=== PATIENT | male | born 1960 | race Caucasian/White ===

== ENCOUNTER → 2019-07-02 | Outpatient (CLI) | payer OTHER, MEDICAID | LOC: M.WC 08:23 | DX: E11.622 Type 2 diabetes mellitus with other skin ulcer (principal); L89.312 Pressure ulcer of right buttock, stage 2; L98.412 Non-pressure chronic ulcer of buttock with fat layer exposed; L02.212 Cutaneous abscess of back [any part, except buttock and flank]; L02.211 Cutaneous abscess of abdominal wall; E66.01 Morbid (severe) obesity due to excess calories; E78.5 Hyperlipidemia, unspecified; G47.30 Sleep apnea, unspecified; I10 Essential (primary) hypertension; F41.9 Anxiety disorder, unspecified; F31.32 Bipolar disorder, current episode depressed, moderate; F17.200 Nicotine dependence, unspecified, uncomplicated; F41.0 Panic disorder [episodic paroxysmal anxiety]; Z68.42 Body mass index [BMI] 45.0-49.9, adult; Z79.82 Long term (current) use of aspirin; Z79.4 Long term (current) use of insulin ==

== ENCOUNTER → 2019-07-09 | Outpatient (CLI) | payer OTHER, MEDICAID | LOC: M.WC 04:39 | DX: E11.622 Type 2 diabetes mellitus with other skin ulcer (principal); L89.312 Pressure ulcer of right buttock, stage 2; L98.412 Non-pressure chronic ulcer of buttock with fat layer exposed; L02.212 Cutaneous abscess of back [any part, except buttock and flank]; L02.211 Cutaneous abscess of abdominal wall; E66.01 Morbid (severe) obesity due to excess calories; E78.5 Hyperlipidemia, unspecified; G47.30 Sleep apnea, unspecified; F31.32 Bipolar disorder, current episode depressed, moderate; F41.9 Anxiety disorder, unspecified; F17.200 Nicotine dependence, unspecified, uncomplicated; Z68.42 Body mass index [BMI] 45.0-49.9, adult ==

== ENCOUNTER → 2019-07-16 | Outpatient (CLI) | payer OTHER, MEDICAID | LOC: M.WC 04:57 | DX: E11.622 Type 2 diabetes mellitus with other skin ulcer (principal); L89.312 Pressure ulcer of right buttock, stage 2; L98.411 Non-pressure chronic ulcer of buttock limited to breakdown of skin; L02.212 Cutaneous abscess of back [any part, except buttock and flank]; L02.211 Cutaneous abscess of abdominal wall; L02.31 Cutaneous abscess of buttock; E66.01 Morbid (severe) obesity due to excess calories; E78.5 Hyperlipidemia, unspecified; I10 Essential (primary) hypertension; G47.30 Sleep apnea, unspecified; F41.9 Anxiety disorder, unspecified; F31.32 Bipolar disorder, current episode depressed, moderate; F17.200 Nicotine dependence, unspecified, uncomplicated; Z68.42 Body mass index [BMI] 45.0-49.9, adult; Z86.73 Personal history of transient ischemic attack (TIA), and cerebral infarction without residual deficits ==

== ENCOUNTER → 2019-07-23 | Outpatient (CLI) | payer OTHER, MEDICAID | LOC: M.WC 05:13 | DX: E11.622 Type 2 diabetes mellitus with other skin ulcer (principal); L89.312 Pressure ulcer of right buttock, stage 2; L98.411 Non-pressure chronic ulcer of buttock limited to breakdown of skin; L02.212 Cutaneous abscess of back [any part, except buttock and flank]; L02.211 Cutaneous abscess of abdominal wall; E66.01 Morbid (severe) obesity due to excess calories; E78.5 Hyperlipidemia, unspecified; G47.30 Sleep apnea, unspecified; I10 Essential (primary) hypertension; K64.5 Perianal venous thrombosis; F41.9 Anxiety disorder, unspecified; F31.32 Bipolar disorder, current episode depressed, moderate; F17.200 Nicotine dependence, unspecified, uncomplicated; Z68.42 Body mass index [BMI] 45.0-49.9, adult; Z86.73 Personal history of transient ischemic attack (TIA), and cerebral infarction without residual deficits ==

== ENCOUNTER → 2019-08-30 | Outpatient (CLI) | payer OTHER, MEDICAID | LOC: M.LAB 04:50 | DX: E87.6 Hypokalemia (principal) ==

== ENCOUNTER → 2020-02-07 | Outpatient (CLI) | payer OTHER, MEDICAID | LOC: M.WC 03:29 | PROVIDERS: ATTEND Surgery | DX: L02.212 Cutaneous abscess of back [any part, except buttock and flank] (principal); L02.31 Cutaneous abscess of buttock; L73.2 Hidradenitis suppurativa; E11.9 Type 2 diabetes mellitus without complications; E66.01 Morbid (severe) obesity due to excess calories; E78.5 Hyperlipidemia, unspecified; G47.30 Sleep apnea, unspecified; I10 Essential (primary) hypertension; J44.9 Chronic obstructive pulmonary disease, unspecified; F41.0 Panic disorder [episodic paroxysmal anxiety]; F31.9 Bipolar disorder, unspecified; F41.9 Anxiety disorder, unspecified; F17.200 Nicotine dependence, unspecified, uncomplicated; Z86.73 Personal history of transient ischemic attack (TIA), and cerebral infarction without residual deficits; Z68.42 Body mass index [BMI] 45.0-49.9, adult; Z79.82 Long term (current) use of aspirin; Z79.4 Long term (current) use of insulin ==

== ENCOUNTER → 2020-02-14 | Outpatient (CLI) | payer OTHER, MEDICAID | LOC: M.WC 02:33 | PROVIDERS: ATTEND Surgery | DX: L02.212 Cutaneous abscess of back [any part, except buttock and flank] (principal); L02.31 Cutaneous abscess of buttock; L73.2 Hidradenitis suppurativa; E66.01 Morbid (severe) obesity due to excess calories; E78.5 Hyperlipidemia, unspecified; G47.30 Sleep apnea, unspecified; I10 Essential (primary) hypertension; J44.9 Chronic obstructive pulmonary disease, unspecified; F31.9 Bipolar disorder, unspecified; F41.9 Anxiety disorder, unspecified; F17.200 Nicotine dependence, unspecified, uncomplicated; F41.0 Panic disorder [episodic paroxysmal anxiety]; Z86.73 Personal history of transient ischemic attack (TIA), and cerebral infarction without residual deficits; Z68.42 Body mass index [BMI] 45.0-49.9, adult ==

== ENCOUNTER → 2020-02-21 | Outpatient (CLI) | payer OTHER, MEDICAID | LOC: M.WC 04:21 | PROVIDERS: ATTEND Surgery | DX: L02.31 Cutaneous abscess of buttock (principal); L02.212 Cutaneous abscess of back [any part, except buttock and flank]; L73.2 Hidradenitis suppurativa; E11.9 Type 2 diabetes mellitus without complications; E78.5 Hyperlipidemia, unspecified; I10 Essential (primary) hypertension; J44.9 Chronic obstructive pulmonary disease, unspecified; G47.30 Sleep apnea, unspecified; E66.01 Morbid (severe) obesity due to excess calories; F31.9 Bipolar disorder, unspecified; F41.9 Anxiety disorder, unspecified; F17.200 Nicotine dependence, unspecified, uncomplicated; Z86.73 Personal history of transient ischemic attack (TIA), and cerebral infarction without residual deficits; Z68.42 Body mass index [BMI] 45.0-49.9, adult; Z79.82 Long term (current) use of aspirin; Z79.4 Long term (current) use of insulin ==

== ENCOUNTER → 2020-02-28 | Outpatient (CLI) | payer OTHER, MEDICAID | LOC: M.WC 06:23 | PROVIDERS: ATTEND Surgery | DX: L02.212 Cutaneous abscess of back [any part, except buttock and flank] (principal); L02.31 Cutaneous abscess of buttock; L02.214 Cutaneous abscess of groin; L73.2 Hidradenitis suppurativa; E66.01 Morbid (severe) obesity due to excess calories; E78.5 Hyperlipidemia, unspecified; G47.30 Sleep apnea, unspecified; I10 Essential (primary) hypertension; J44.9 Chronic obstructive pulmonary disease, unspecified; F31.9 Bipolar disorder, unspecified; F41.9 Anxiety disorder, unspecified; F17.200 Nicotine dependence, unspecified, uncomplicated; F41.0 Panic disorder [episodic paroxysmal anxiety]; Z86.73 Personal history of transient ischemic attack (TIA), and cerebral infarction without residual deficits; Z68.42 Body mass index [BMI] 45.0-49.9, adult ==

== ENCOUNTER → 2020-03-06 | Outpatient (CLI) | payer OTHER, MEDICAID | LOC: M.WC 04:22 | PROVIDERS: ATTEND Surgery | DX: L02.214 Cutaneous abscess of groin (principal); L02.212 Cutaneous abscess of back [any part, except buttock and flank]; L02.31 Cutaneous abscess of buttock; L73.2 Hidradenitis suppurativa; E66.01 Morbid (severe) obesity due to excess calories; E78.5 Hyperlipidemia, unspecified; G47.30 Sleep apnea, unspecified; I10 Essential (primary) hypertension; J44.9 Chronic obstructive pulmonary disease, unspecified; F31.9 Bipolar disorder, unspecified; F41.9 Anxiety disorder, unspecified; F17.200 Nicotine dependence, unspecified, uncomplicated; F41.0 Panic disorder [episodic paroxysmal anxiety]; Z86.73 Personal history of transient ischemic attack (TIA), and cerebral infarction without residual deficits; Z68.42 Body mass index [BMI] 45.0-49.9, adult ==

== ENCOUNTER → 2020-03-13 | Outpatient (CLI) | payer OTHER, MEDICAID | LOC: M.WC 03:04 | PROVIDERS: ATTEND Surgery | DX: L02.214 Cutaneous abscess of groin (principal); L02.212 Cutaneous abscess of back [any part, except buttock and flank]; L02.31 Cutaneous abscess of buttock; L73.2 Hidradenitis suppurativa; E11.9 Type 2 diabetes mellitus without complications; E66.01 Morbid (severe) obesity due to excess calories; E78.5 Hyperlipidemia, unspecified; G47.30 Sleep apnea, unspecified; I10 Essential (primary) hypertension; J44.9 Chronic obstructive pulmonary disease, unspecified; F31.9 Bipolar disorder, unspecified; F41.9 Anxiety disorder, unspecified; F17.200 Nicotine dependence, unspecified, uncomplicated; F41.0 Panic disorder [episodic paroxysmal anxiety]; Z86.73 Personal history of transient ischemic attack (TIA), and cerebral infarction without residual deficits; Z68.42 Body mass index [BMI] 45.0-49.9, adult ==

== ENCOUNTER → 2020-03-20 | Outpatient (CLI) | payer OTHER, MEDICAID ==
[~2020-03-20] MED LIST: ACETAZOLAMIDE250 M2 PO; ASPIRIN325 PO; FLOMAX0.4 MG PO; GLIPIZIDE 10 MG10 MG PO; HUMULIN; HYDROCODON-ACE1 EAC7 PO; HYDROXYZINE HCL25 M2 PO; LAMOTRIGINE150 MG PO; LISINOPRIL20 MG PO; LOVASTATIN 20 M20 MG PO; PROZAC20 M1 PO; QUETIAPINE FUM200 M1 PO; SUPER THERAVIT1 EACH PO; TOPROL XL50 MG PO; TRIAMCINOLONE 080 G3 TOP; XANAX1 MG PO; ZYRTEC10 M5 PO
== END ==
LOC: M.WC 02:50
PROVIDERS: ATTEND Surgery
DX: L02.214 Cutaneous abscess of groin (principal); L02.212 Cutaneous abscess of back [any part, except buttock and flank]; L02.31 Cutaneous abscess of buttock; L73.2 Hidradenitis suppurativa; E66.01 Morbid (severe) obesity due to excess calories; E78.5 Hyperlipidemia, unspecified; G47.30 Sleep apnea, unspecified; I10 Essential (primary) hypertension; J44.9 Chronic obstructive pulmonary disease, unspecified; F31.9 Bipolar disorder, unspecified; F17.200 Nicotine dependence, unspecified, uncomplicated; F41.9 Anxiety disorder, unspecified; F41.0 Panic disorder [episodic paroxysmal anxiety]; Z86.73 Personal history of transient ischemic attack (TIA), and cerebral infarction without residual deficits; Z68.42 Body mass index [BMI] 45.0-49.9, adult

== ENCOUNTER → 2020-03-27 | Outpatient (CLI) | payer OTHER, MEDICAID | LOC: M.WC 05:22 | PROVIDERS: ATTEND Surgery | DX: L02.214 Cutaneous abscess of groin (principal); L02.212 Cutaneous abscess of back [any part, except buttock and flank]; L02.31 Cutaneous abscess of buttock; L73.2 Hidradenitis suppurativa; E11.9 Type 2 diabetes mellitus without complications; E66.01 Morbid (severe) obesity due to excess calories; E78.5 Hyperlipidemia, unspecified; I10 Essential (primary) hypertension; G47.30 Sleep apnea, unspecified; J44.9 Chronic obstructive pulmonary disease, unspecified; F31.9 Bipolar disorder, unspecified; F41.9 Anxiety disorder, unspecified; F17.200 Nicotine dependence, unspecified, uncomplicated; Z86.73 Personal history of transient ischemic attack (TIA), and cerebral infarction without residual deficits; Z68.42 Body mass index [BMI] 45.0-49.9, adult ==

== ENCOUNTER → 2020-04-24 | Outpatient (CLI) | payer OTHER, MEDICAID | LOC: M.WC 07:19 | PROVIDERS: ATTEND Surgery | DX: L02.214 Cutaneous abscess of groin (principal); L73.2 Hidradenitis suppurativa; E11.9 Type 2 diabetes mellitus without complications; E66.01 Morbid (severe) obesity due to excess calories; E78.5 Hyperlipidemia, unspecified; G47.30 Sleep apnea, unspecified; I10 Essential (primary) hypertension; J44.9 Chronic obstructive pulmonary disease, unspecified; F31.9 Bipolar disorder, unspecified; F41.9 Anxiety disorder, unspecified; F17.200 Nicotine dependence, unspecified, uncomplicated; Z68.42 Body mass index [BMI] 45.0-49.9, adult; Z86.73 Personal history of transient ischemic attack (TIA), and cerebral infarction without residual deficits ==

== ENCOUNTER → 2020-05-01 | Outpatient (CLI) | payer OTHER, MEDICAID | LOC: M.WC 03:16 | PROVIDERS: ATTEND Surgery | DX: L02.214 Cutaneous abscess of groin (principal); L73.2 Hidradenitis suppurativa; E66.01 Morbid (severe) obesity due to excess calories; E78.5 Hyperlipidemia, unspecified; G47.30 Sleep apnea, unspecified; I10 Essential (primary) hypertension; J44.9 Chronic obstructive pulmonary disease, unspecified; F31.9 Bipolar disorder, unspecified; F41.9 Anxiety disorder, unspecified; F17.200 Nicotine dependence, unspecified, uncomplicated; Z86.73 Personal history of transient ischemic attack (TIA), and cerebral infarction without residual deficits; Z68.42 Body mass index [BMI] 45.0-49.9, adult ==

== ENCOUNTER → 2020-05-15 | Outpatient (CLI) | payer OTHER, MEDICAID | LOC: M.WC 04:05 | PROVIDERS: ATTEND Surgery | DX: L02.214 Cutaneous abscess of groin (principal); L73.2 Hidradenitis suppurativa; E66.01 Morbid (severe) obesity due to excess calories; E78.5 Hyperlipidemia, unspecified; G47.30 Sleep apnea, unspecified; I10 Essential (primary) hypertension; J44.9 Chronic obstructive pulmonary disease, unspecified; F31.9 Bipolar disorder, unspecified; F41.9 Anxiety disorder, unspecified; F17.200 Nicotine dependence, unspecified, uncomplicated; Z86.73 Personal history of transient ischemic attack (TIA), and cerebral infarction without residual deficits ==

== ENCOUNTER → 2020-05-22 | Outpatient (CLI) | payer OTHER, MEDICAID | LOC: M.WC 07:06 | PROVIDERS: ATTEND Surgery | DX: L02.214 Cutaneous abscess of groin (principal); L73.2 Hidradenitis suppurativa; E78.5 Hyperlipidemia, unspecified; I10 Essential (primary) hypertension; J44.9 Chronic obstructive pulmonary disease, unspecified; E66.01 Morbid (severe) obesity due to excess calories; G47.30 Sleep apnea, unspecified; F31.9 Bipolar disorder, unspecified; F41.9 Anxiety disorder, unspecified; F17.200 Nicotine dependence, unspecified, uncomplicated; Z68.42 Body mass index [BMI] 45.0-49.9, adult; Z86.73 Personal history of transient ischemic attack (TIA), and cerebral infarction without residual deficits ==

== ENCOUNTER 2020-06-02 09:25 | Inpatient (IN) | payer OTHER, MEDICAID ==
[~2020-06-02] VITALS: Ht 170.2 cm; Wt 136.4 kg
[2020-06-02 09:34] VITALS: BP 146/94
[2020-06-02] MEDS ORDERED: ASPIRIN325 PO (09:39)
[2020-06-02] MEDS ORDERED: XANAX1 MG PO (09:39)
[2020-06-02] MEDS ORDERED: GLIPIZIDE 10 MG10 MG PO (09:40)
[2020-06-02] MEDS ORDERED: ZYRTEC10 M5 PO (09:40)
[2020-06-02] MEDS ORDERED: PROZAC20 M1 PO (09:40)
[2020-06-02] MEDS ORDERED: HYDROXYZINE HCL25 M2 PO (09:41)
[2020-06-02] MEDS ORDERED: HUMULIN (09:41)
[2020-06-02] MEDS ORDERED: LISINOPRIL20 MG PO (09:42)
[2020-06-02] MEDS ORDERED: LAMOTRIGINE150 MG PO (09:42)
[2020-06-02] MEDS ORDERED: FLOMAX0.4 MG PO (09:43)
[2020-06-02] MEDS ORDERED: TOPROL XL50 MG PO (09:43)
[2020-06-02] MEDS ORDERED: QUETIAPINE FUM200 M1 PO (09:43)
[2020-06-02] MEDS ORDERED: LOVASTATIN 20 M20 MG PO (09:43)
[2020-06-02] MEDS ORDERED: SUPER THERAVIT1 EACH PO (09:43)
[2020-06-02] MEDS ORDERED: TRIAMCINOLONE 080 G3 TOP (09:44)
[2020-06-02 10:26] LABS: HEMATOCRIT 39.4 % (42.0-52.0); HEMOGLOBIN 13.5 gm/dL (14.0-18.0); MCHC 34.4 g/dL (28.0-37.0); MCV 93.2 fL (80.0-100.0); MPV 6.9 fl. (7.2-11.1); NUCLEATED RBCS 0 /100WBC; PLATELET COUNT* 197 thou/uL (150-400); RBC 4.23 mil/uL (4.50-6.00); RDW-CV 13.5 % (10.5-14.5); WBC 8.8 thou/uL (4.0-11.0)
[2020-06-02 10:30] LABS: CALCIUM 9.3 mg/dL (8.5-10.1); POTASSIUM 4.6 mmol/L (3.5-5.1)
[2020-06-02 10:32] LABS: APTT 27.5 Seconds (25.0-31.3); PROTIME 10.8 Seconds (9.20-11.50)
[2020-06-02 10:41] LABS: ALBUMIN 3.9 g/dL (3.4-5.0); TOTAL BILIRUBIN 0.7 mg/dL (<0.1-1.0); TOTAL PROTEIN 7.3 g/dL (6.4-8.2)
[2020-06-02 10:51] LABS: URINE BILIRUBIN NEGATIVE (Negative); URINE BLOOD NEGATIVE (Negative); URINE CLARITY CLEAR; URINE COLOR YELLOW; URINE GLUCOSE-RANDOM NEGATIVE (Negative); URINE KETONES NEGATIVE (Negative); URINE LEUKOCYTES-REFLEX NEGATIVE (Negative); URINE NITRITE-REFLEX NEGATIVE (Negative); URINE PROTEIN NEGATIVE (Negative)
[2020-06-02 11:06] LABS: ABSOLUTE BASOPHILS 0.1 thou/uL (0.0-0.2); ABSOLUTE MONOCYTES 0.6 thou/uL (0.0-1.2); ABSOLUTE NEUTROPHILS 6.2 thou/uL (1.6-8.1); METAMYELOCYTES 1 %
[2020-06-02 11:07] LABS: PLATELET ESTIMATE ADEQUATE
--- NOTE | 2020-06-02 11:59 | NUR ---
SCHEDULED MRI AT 1300, DR WATERS NOTIFIED
--- NOTE | 2020-06-02 12:13 | NUR ---
MRI CHECKLIST COMPLETE
--- NOTE | 2020-06-02 12:15 | NUR ---
ORDERS RECEIVED FROM DR WATERS, SCHEDULED MRI AT 1300, LP PROCEDURE AWAITING RESULTS TO PROCEED, ADMISSION STATUS AND ER CHARGE NURSE NOTIFIED
--- NOTE | 2020-06-02 14:45 | NUR ---
DR WATERS CALLED RADIOLOGY IR FOR FURTHER INTERVENTIONS R/T LP
[2020-06-02 15:07] VITALS: BP 132/61
[2020-06-02 16:38] VITALS: BP 139/64
--- NOTE | 2020-06-02 16:58 | EKG ---
[place] [address] ELECTROCARDIOGRAM REPORT Name: SYDNEE MAY Room: [address] ADM IN M.R.#: [id number] Admission: 06/02/20 Attend Phys: Waldemar Canales Discharge: Date of : 64 Date of Service: 06/02/20 0934 Report #: [id number] THIS REPORT FOR: //name// [facility] ED Test Date: 2020-06-02 Test Time: 09:34:40 Pat Name: SYDNEE MAY Department: Room: [facility] Gender: M Campaign Developer: TDS : 1960 Requested By: Ran Huizar Order Number: [id number] MD: Sydnee Alvarado Measurements Intervals [place] Rate: 79 P: 47 WV: 195 QRS: 54 QRSD: 110 T: 55 QT: 372 QTc: 427 Interpretive Statements Sinus rhythm Low voltage, precordial leads No previous ECG available for comparison Electronically Signed On 06-02-2020 16:58:17 CDT by Sydnee Alvarado [email or web address] <ELECTRONICALLY SIGNED> By: Sydnee Alvarado MD, [facility] 06/02/20 1658 0934 0934 Sydnee Alvarado MD, [facility] /EPI
--- NOTE | 2020-06-02 17:03 | NUR ---
PT ADMITTED WITH HYPONATREMIA AND PSEUDOTUMOR. PT RETURNED FROM LUMBAR PUNCTURE. PT ALERT AND ORIENTED. PT RESTING FLAT IN BED. PT ORIENTED TO ROOM. FALL RISK PRECAUTIONS IN PLACE. BLOOD SUGAR MONITORED. HEART MONITORED. WILL CONTINUE TO MONTIOR.
--- NOTE | 2020-06-02 17:13 | NUR ---
PT REMAINED ALERT AND ORIENTED. PT LAYING FLAT PER PROTOCOL FOR 3 HOURS. BLOOD SUGAR CHECKED. HERAT MONITORED. FALL RISK PRECAUTIONS IN PLACE. HOURLY ROUNDING COMPLETED. WILL CONTINUE TO MONITOR.
[2020-06-02 17:20] LABS: CSF GLUCOSE 74 mg/dl (40-70); CSF PROTEIN 60.3 mg/dl (15-45)
[2020-06-02 18:26] LABS: CSF CLARITY CLEAR; CSF COLOR COLORLESS; CSF RBC 0 /mm3; VOLUME 28 ml
[2020-06-02 18:27] LABS: CSF WBC 1 /mm3 (0-10)
[2020-06-02 20:00] VITALS: BP 151/65
[2020-06-03] VITALS: BP 149/70
[2020-06-03 04:27] VITALS: BP 129/59
[2020-06-03 04:40] LABS: HEMOGLOBIN 13.4 gm/dL (14.0-18.0); MCH 32.6 pg (26.0-34.0); MCHC 35.2 g/dL (28.0-37.0); MCV 92.7 fL (80.0-100.0); MPV 6.8 fl. (7.2-11.1); RBC 4.1 mil/uL (4.50-6.00); RDW-CV 13.2 % (10.5-14.5); WBC 9.5 thou/uL (4.0-11.0)
[2020-06-03 04:58] LABS: ALBUMIN 3.7 g/dL (3.4-5.0); CALCIUM 8.8 mg/dL (8.5-10.1); CREATININE 1.1 mg/dL (0.6-1.3); MAGNESIUM 1.7 mg/dL (1.8-2.4); POTASSIUM 3.9 mmol/L (3.5-5.1); TOTAL BILIRUBIN 0.8 mg/dL (<0.1-1.0); TOTAL PROTEIN 6.8 g/dL (6.4-8.2)
--- NOTE | 2020-06-03 05:53 | NUR ---
ASSESSMENT COMPLETED AT BEDSIDE, PLEASE REFER TO CHARTING FOR DETAILS. MEDICATIONS ADMINISTERED PER MAR. NO REPORTS OF PAIN OR DISCOMFORT NOTED. HOURL ROUNDING IN PLACE FOR PT SAFETY. CURRENTLY ASLEEP IN BED WITH CALL LIGHT WITHIN REACH.
[2020-06-03 08:00] VITALS: BP 129/64
[2020-06-03 12:00] VITALS: BP 125/63
--- NOTE | 2020-06-03 16:40 | NUR ---
PT HAS RESTED T/O DAY WITHOUT COMPLAINT. PT REPORTED A SLIGHT HEADACHE UPON ASSESSMENT BUT HAS SINCE RESOLVED.VSS ON RA. SR ON MONITOR. HAVE NOTED THAT PT DOES HAVE MOMENTS OF ANXIETY WHEN DOOR IS OPEN. SIGN MADE TO KEEP PTS DOOR CLOSED. NOTHING FURTHER AT THIS TIME.CLWR.WCTM
[2020-06-03 17:59] VITALS: BP 143/61
[2020-06-03 20:00] VITALS: BP 132/61
[2020-06-04] VITALS: BP 132/64
[2020-06-04 03:06] LABS: IgA 243 mg/dL (90-386); IgG 803 mg/dL (603-1613); IgM 56 mg/dL (20-172)
[2020-06-04 04:00] VITALS: BP 118/58
[2020-06-04 04:42] LABS: HEMATOCRIT 39.1 % (42.0-52.0); HEMOGLOBIN 13.6 gm/dL (14.0-18.0); MCHC 34.8 g/dL (28.0-37.0); MCV 91.9 fL (80.0-100.0); MPV 6.7 fl. (7.2-11.1); RBC 4.25 mil/uL (4.50-6.00); RDW-CV 13.4 % (10.5-14.5); WBC 9.1 thou/uL (4.0-11.0)
[2020-06-04 05:00] LABS: ALBUMIN 3.6 g/dL (3.4-5.0); CALCIUM 8.9 mg/dL (8.5-10.1); POTASSIUM 3.9 mmol/L (3.5-5.1); TOTAL BILIRUBIN 0.8 mg/dL (<0.1-1.0); TOTAL PROTEIN 6.8 g/dL (6.4-8.2)
[2020-06-04 05:39] LABS: LDL (DIRECT) CHOL 79 mg/dL (0-99)
--- NOTE | 2020-06-04 06:55 | NUR ---
ASSUMED PT CARE AT APPROX 1930. PT IS AWAKE AND ORIENTED X4. MANAGER SUPPLY CHAIN PLANNING IS TRACING SR. PT DENIES PAIN/DISCOMFORT. PT IS NOT IN RESPIRATORY DISTRESS, NO DESATURATIONS NOTED ON ROOM AIR.PT IS ABLE TO REST THROUGHOUT THIS SHIFT. CALL LIGHT WITHIN REACH. HOURLY ROUNDING DONE FOR PT SAFETY.
[2020-06-04 08:00] VITALS: BP 104/54
[2020-06-04 11:48] VITALS: BP 116/49
[2020-06-04] MEDS ORDERED: ACETAZOLAMIDE250 M2 PO (14:15)
[2020-06-04 14:59] VITALS: BP 116/49
--- NOTE | 2020-06-04 15:39 | NUR ---
PT HAS RESTED T/O DAY WITHOUT COMPLAINTS. BP DECREASED UPON ASSESSMENT. HELD BP MEDICATION AND EDUCATED ON ABILITY TO TAKE LATER IF BP ELEVATED. OTHERWISE VSS. SR ON MONITOR. NEURO SIGNED OFF. PT MADE AWARE TO FOLLOW WITH OPTHAMOLOGY. NOTHING FURTHER.CLWR.WCTM
--- NOTE | 2020-06-04 15:42 | NUR ---
PT DCD TO HOME IN STABLE CONDITION. DC INSTRUCTIONS,MEDICATIONS,PRESCRIPTIONS, FOLLOW UP,ACTIVITY,DIET AND TREATMENTS REVIEWED WITH PT AND PT REPORTS UNDERSTANDING WITHOUT FURTHER QUESTIONS. PT TAKEN TO FAMILY VEHICLE ACCOMPANIED BY STAFF WITH ALL OF BELONGINGS.
== END 2020-06-04 15:58 | disposition home or self-care (01) | DRG 103 ==
LOC: M.ERS 09:25 → M.2W 12:04 → M.TBA-ER 12:04 → M.2W 15:21
PROVIDERS: Emergency Medicine Emergency Medical Services; Psychiatry & Neurology Neurology; ADMIT Family Medicine; ATTEND Family Medicine
PROC: B01B1ZZ Fluoroscopy of Spinal Cord using Low Osmolar Contrast (ICD-10-PCS; principal; 2020-06-02)
PROC: 009U3ZX Drainage of Spinal Canal, Percutaneous Approach, Diagnostic (ICD-10-PCS; principal; 2020-06-02)
DX: G93.2 Benign intracranial hypertension (principal); E22.2 Syndrome of inappropriate secretion of antidiuretic hormone; Z68.41 Body mass index [BMI] 40.0-44.9, adult; E78.5 Hyperlipidemia, unspecified; F32.9 Major depressive disorder, single episode, unspecified; F41.9 Anxiety disorder, unspecified; F17.210 Nicotine dependence, cigarettes, uncomplicated; F40.00 Agoraphobia, unspecified; E66.01 Morbid (severe) obesity due to excess calories; I10 Essential (primary) hypertension; E11.51 Type 2 diabetes mellitus with diabetic peripheral angiopathy without gangrene; Z20.828 Contact with and (suspected) exposure to other viral communicable diseases; Z79.84 Long term (current) use of oral hypoglycemic drugs; Z79.82 Long term (current) use of aspirin; Z79.899 Other long term (current) drug therapy; Z86.73 Personal history of transient ischemic attack (TIA), and cerebral infarction without residual deficits; Z23 Encounter for immunization

== ENCOUNTER → 2020-06-05 | Outpatient (CLI) | payer OTHER, MEDICAID ==
[~2020-06-05] MED LIST changes: -HYDROCODON-ACE1 EAC7 PO
== END ==
LOC: M.WC 03:37
PROVIDERS: ATTEND Surgery
DX: L02.214 Cutaneous abscess of groin (principal); L73.2 Hidradenitis suppurativa; E66.01 Morbid (severe) obesity due to excess calories; E78.5 Hyperlipidemia, unspecified; G47.30 Sleep apnea, unspecified; I10 Essential (primary) hypertension; J44.9 Chronic obstructive pulmonary disease, unspecified; F41.0 Panic disorder [episodic paroxysmal anxiety]; F17.200 Nicotine dependence, unspecified, uncomplicated; F31.9 Bipolar disorder, unspecified; F41.9 Anxiety disorder, unspecified; Z86.73 Personal history of transient ischemic attack (TIA), and cerebral infarction without residual deficits; Z68.42 Body mass index [BMI] 45.0-49.9, adult

== ENCOUNTER → 2020-06-12 | Outpatient (CLI) | payer OTHER, MEDICAID | LOC: M.WC 03:38 | PROVIDERS: ATTEND Surgery | DX: L02.214 Cutaneous abscess of groin (principal); L73.2 Hidradenitis suppurativa; E66.01 Morbid (severe) obesity due to excess calories; E78.5 Hyperlipidemia, unspecified; G47.30 Sleep apnea, unspecified; I10 Essential (primary) hypertension; J44.9 Chronic obstructive pulmonary disease, unspecified; F31.9 Bipolar disorder, unspecified; F41.9 Anxiety disorder, unspecified; F41.0 Panic disorder [episodic paroxysmal anxiety]; F17.200 Nicotine dependence, unspecified, uncomplicated; Z86.73 Personal history of transient ischemic attack (TIA), and cerebral infarction without residual deficits; Z68.42 Body mass index [BMI] 45.0-49.9, adult ==

== ENCOUNTER → 2020-06-19 | Outpatient (CLI) | payer OTHER, MEDICAID | LOC: M.WC 07:29 | PROVIDERS: ATTEND Surgery | DX: L02.214 Cutaneous abscess of groin (principal); L73.2 Hidradenitis suppurativa; E66.01 Morbid (severe) obesity due to excess calories; E78.5 Hyperlipidemia, unspecified; G47.30 Sleep apnea, unspecified; I10 Essential (primary) hypertension; J44.9 Chronic obstructive pulmonary disease, unspecified; F31.9 Bipolar disorder, unspecified; F41.0 Panic disorder [episodic paroxysmal anxiety]; F41.9 Anxiety disorder, unspecified; F17.200 Nicotine dependence, unspecified, uncomplicated; Z86.73 Personal history of transient ischemic attack (TIA), and cerebral infarction without residual deficits; Z68.42 Body mass index [BMI] 45.0-49.9, adult ==

== ENCOUNTER → 2020-06-26 | Outpatient (CLI) | payer OTHER, MEDICAID | LOC: M.WC 05:34 | PROVIDERS: ATTEND Surgery | DX: L73.2 Hidradenitis suppurativa (principal); L02.214 Cutaneous abscess of groin; E66.01 Morbid (severe) obesity due to excess calories; E78.5 Hyperlipidemia, unspecified; G47.30 Sleep apnea, unspecified; I10 Essential (primary) hypertension; J44.9 Chronic obstructive pulmonary disease, unspecified; F31.9 Bipolar disorder, unspecified; F41.9 Anxiety disorder, unspecified; F17.200 Nicotine dependence, unspecified, uncomplicated; F41.0 Panic disorder [episodic paroxysmal anxiety]; Z86.73 Personal history of transient ischemic attack (TIA), and cerebral infarction without residual deficits; Z68.42 Body mass index [BMI] 45.0-49.9, adult ==

== ENCOUNTER → 2020-07-20 | Outpatient (CLI) | payer OTHER, MEDICAID | LOC: M.WC 08:00 | PROVIDERS: ATTEND Family Medicine | DX: L73.2 Hidradenitis suppurativa (principal); L02.31 Cutaneous abscess of buttock; E78.5 Hyperlipidemia, unspecified; I10 Essential (primary) hypertension; J44.9 Chronic obstructive pulmonary disease, unspecified; G47.30 Sleep apnea, unspecified; E66.01 Morbid (severe) obesity due to excess calories; F31.9 Bipolar disorder, unspecified; F41.9 Anxiety disorder, unspecified; F17.290 Nicotine dependence, other tobacco product, uncomplicated; Z86.73 Personal history of transient ischemic attack (TIA), and cerebral infarction without residual deficits; Z68.42 Body mass index [BMI] 45.0-49.9, adult; Z79.82 Long term (current) use of aspirin; Z79.84 Long term (current) use of oral hypoglycemic drugs ==

== ENCOUNTER → 2020-07-24 | Outpatient (CLI) | payer OTHER, MEDICAID | LOC: M.WC 08:06 | PROVIDERS: ATTEND Surgery | DX: L73.2 Hidradenitis suppurativa (principal); L02.31 Cutaneous abscess of buttock; E78.5 Hyperlipidemia, unspecified; I10 Essential (primary) hypertension; J44.9 Chronic obstructive pulmonary disease, unspecified; E11.9 Type 2 diabetes mellitus without complications; G47.30 Sleep apnea, unspecified; E66.01 Morbid (severe) obesity due to excess calories; F31.9 Bipolar disorder, unspecified; F41.9 Anxiety disorder, unspecified; F17.290 Nicotine dependence, other tobacco product, uncomplicated; Z68.42 Body mass index [BMI] 45.0-49.9, adult; Z86.73 Personal history of transient ischemic attack (TIA), and cerebral infarction without residual deficits; Z79.82 Long term (current) use of aspirin; Z79.4 Long term (current) use of insulin ==

== ENCOUNTER → 2020-07-31 | Outpatient (CLI) | payer OTHER, MEDICAID | LOC: M.WC 08:04 | PROVIDERS: ATTEND Surgery | DX: L73.2 Hidradenitis suppurativa (principal); L02.31 Cutaneous abscess of buttock; E11.9 Type 2 diabetes mellitus without complications; E78.5 Hyperlipidemia, unspecified; E66.01 Morbid (severe) obesity due to excess calories; I10 Essential (primary) hypertension; J44.9 Chronic obstructive pulmonary disease, unspecified; G47.30 Sleep apnea, unspecified; F31.9 Bipolar disorder, unspecified; F41.9 Anxiety disorder, unspecified; F17.290 Nicotine dependence, other tobacco product, uncomplicated; Z68.42 Body mass index [BMI] 45.0-49.9, adult; Z86.73 Personal history of transient ischemic attack (TIA), and cerebral infarction without residual deficits ==

== ENCOUNTER → 2020-08-07 | Outpatient (CLI) | payer OTHER, MEDICAID | LOC: M.WC 08:13 | PROVIDERS: ATTEND Surgery | DX: L02.31 Cutaneous abscess of buttock (principal); L73.2 Hidradenitis suppurativa; E11.9 Type 2 diabetes mellitus without complications; E78.5 Hyperlipidemia, unspecified; I10 Essential (primary) hypertension; J44.9 Chronic obstructive pulmonary disease, unspecified; E66.01 Morbid (severe) obesity due to excess calories; G47.30 Sleep apnea, unspecified; F31.9 Bipolar disorder, unspecified; F41.9 Anxiety disorder, unspecified; F17.290 Nicotine dependence, other tobacco product, uncomplicated; Z68.42 Body mass index [BMI] 45.0-49.9, adult; Z86.73 Personal history of transient ischemic attack (TIA), and cerebral infarction without residual deficits; Z79.4 Long term (current) use of insulin; Z79.82 Long term (current) use of aspirin ==

== ENCOUNTER → 2020-08-21 | Outpatient (CLI) | payer OTHER, MEDICAID | LOC: M.WC 08:30 | PROVIDERS: ATTEND Surgery | DX: L02.31 Cutaneous abscess of buttock (principal); E78.5 Hyperlipidemia, unspecified; I10 Essential (primary) hypertension; J44.9 Chronic obstructive pulmonary disease, unspecified; E11.9 Type 2 diabetes mellitus without complications; G47.30 Sleep apnea, unspecified; E66.01 Morbid (severe) obesity due to excess calories; F31.9 Bipolar disorder, unspecified; F41.9 Anxiety disorder, unspecified; F17.290 Nicotine dependence, other tobacco product, uncomplicated; Z68.42 Body mass index [BMI] 45.0-49.9, adult; Z86.73 Personal history of transient ischemic attack (TIA), and cerebral infarction without residual deficits; Z79.4 Long term (current) use of insulin; Z79.82 Long term (current) use of aspirin ==

== ENCOUNTER → 2020-08-28 | Outpatient (CLI) | payer OTHER, MEDICAID | LOC: M.WC 09:00 | PROVIDERS: ATTEND Surgery | DX: L02.214 Cutaneous abscess of groin (principal); L73.2 Hidradenitis suppurativa; E66.01 Morbid (severe) obesity due to excess calories; E78.5 Hyperlipidemia, unspecified; I10 Essential (primary) hypertension; E11.9 Type 2 diabetes mellitus without complications; J44.9 Chronic obstructive pulmonary disease, unspecified; G47.30 Sleep apnea, unspecified; F31.9 Bipolar disorder, unspecified; F41.9 Anxiety disorder, unspecified; F17.290 Nicotine dependence, other tobacco product, uncomplicated; Z86.73 Personal history of transient ischemic attack (TIA), and cerebral infarction without residual deficits; Z68.42 Body mass index [BMI] 45.0-49.9, adult; Z79.4 Long term (current) use of insulin; Z79.82 Long term (current) use of aspirin ==

== ENCOUNTER → 2020-09-04 | Outpatient (CLI) | payer OTHER, MEDICAID | LOC: M.WC 08:53 | PROVIDERS: ATTEND Surgery | DX: L02.214 Cutaneous abscess of groin (principal); L73.2 Hidradenitis suppurativa; E11.9 Type 2 diabetes mellitus without complications; E78.5 Hyperlipidemia, unspecified; E66.01 Morbid (severe) obesity due to excess calories; G47.30 Sleep apnea, unspecified; I10 Essential (primary) hypertension; J44.9 Chronic obstructive pulmonary disease, unspecified; F17.200 Nicotine dependence, unspecified, uncomplicated; F41.9 Anxiety disorder, unspecified; F31.9 Bipolar disorder, unspecified; Z68.42 Body mass index [BMI] 45.0-49.9, adult; Z86.73 Personal history of transient ischemic attack (TIA), and cerebral infarction without residual deficits ==

== ENCOUNTER → 2020-09-13 | Outpatient (CLI) | payer OTHER, MEDICAID | LOC: M.LAB 09:08 | PROVIDERS: ATTEND Surgery | DX: Z01.812 Encounter for preprocedural laboratory examination (principal); Z20.822 Contact with and (suspected) exposure to COVID-19; L73.2 Hidradenitis suppurativa ==

== ENCOUNTER → 2020-09-18 | Day surgery (SDC) | payer OTHER, MEDICAID ==
--- NOTE | 2020-09-17 21:08 | H ---
[place] [address] HISTORY AND PHYSICAL Name: YADIRASYDNEE Joni Room: PRE [facility]..#: [id number] Admission: Attend Phys: Yajaira Gonzalez MD Discharge: Date of : 64 Report #: [id number] THIS REPORT FOR: cc: Suzie Marx Ahmad W. DO ~ Yajaira Gonzalez MD PREOPERATIVE HISTORY AND PHYSICAL To be treated on 09/18/2020. ADMITTING DIAGNOSIS: Chronic recurrent left inguinal hidradenitis. HISTORY OF PRESENT ILLNESS: The patient is a 60-year-old male who presents to my office with a medical history of type 2 diabetes, obesity, hyperlipidemia, hypertension, depression, bipolar disorder attacks and COPD with chronic remitting hidradenitis. He has had multiple wound care debridement. He has had treatments with topical antibiotics and medical treatment with Proscar, oral antibiotics and anti-inflammatories to no avail. He keeps having recurrent attacks in his left groin and not have any surgical excision of that region. PAST SURGICAL HISTORY: Other surgical history includes rotator cuff surgery on the right, an anal fistula repair and carpal tunnel surgery. ALLERGIES: He reports no known allergies. MEDICATIONS: His medications also include; risperidone, lisinopril, lovastatin, glipizide, Novolin insulin, fluoxetine and hydrochlorothiazide. PHYSICAL EXAMINATION: GENERAL: He is a modestly obese, well-developed male. HEAD, EARS, EYES, NOSE AND THROAT: Unremarkable. NECK: Supple. LUNGS: Clear. CARDIAC: Regular rate and rhythm. ABDOMEN: Soft and nontender. He had an inguinal space on the left. There is a chronic indurated palpable area of approximately 3.5 x 1 cm with thickening and chronic drainage, consistent with the hidradenitis diagnosis. IMPRESSION: Chronic hidradenitis. PLAN: I have outlined surgical excision of [place] [address] HISTORY AND PHYSICAL Name: SYDNEE MAY Room: PRE [facility].#: [id number] Admission: Attend Phys: Yajaira Gonzalez MD Discharge: Date of : 64 Report #: [id number] risks and benefits including delayed healing and needing of wound care. He understands the risks and benefits and wishes to proceed with surgical excision. <ELECTRONICALLY SIGNED> By: Yajaira Gonzalez MD 09/17/20 2108 1229 1245Yajaira Gonzalez MD /nt
[~2020-09-18] MED LIST changes: +HYDROCODON-ACE1 EAC7 PO
[2020-09-18 10:38] LABS: HEMATOCRIT 41.2 % (42.0-52.0); HEMOGLOBIN 13.8 gm/dL (14.0-18.0); MCH 31.5 pg (26.0-34.0); MCHC 33.6 g/dL (28.0-37.0); MCV 93.7 fL (80.0-100.0); MPV 7.3 fl. (7.2-11.1); RBC 4.39 mil/uL (4.50-6.00); RDW-CV 12.7 % (10.5-14.5); WBC 9.2 thou/uL (4.0-11.0)
[2020-09-18 10:42] LABS: CALCIUM 9.1 mg/dL (8.5-10.1); CREATININE 1.2 mg/dL (0.6-1.3); POTASSIUM 4.3 mmol/L (3.5-5.1)
--- NOTE | 2020-09-19 17:38 | OP ---
[address] [address] OPERATIVE REPORT Name: SYDNEE MAY Room: [facility].#: [id number] Admission: 09/18/20 Attend Phys: Yajaira Gonzalez MD Discharge: Date of : 64 Report #: [id number] THIS REPORT FOR: cc: Suzie Marx Ahmad W. DO ~ Yajaira Gonzalez MD DATE OF SERVICE: 09/18/2020 PREOPERATIVE DIAGNOSIS: Chronic recurrent left groin hidradenitis. POSTOPERATIVE DIAGNOSIS: Chronic recurrent left groin hidradenitis. OPERATIVE PROCEDURE: Wide local excision of left groin hidradenitis. ANESTHESIA: Laryngeal mask with 0.5% Marcaine with epinephrine. PRE BILLING SPECIALIST: ____ Luis Armando, medical student third year. DESCRIPTION OF PROCEDURE: The patient was placed under laryngeal mask anesthesia and the patient's left groin was carefully shaved, prepped and draped in our usual sterile fashion. A timeout was taken. Three grams of IV Ancef was administered. I injected around the palpable 4.5 cm diameter and 1.5 diameter width of the hidradenitis site, injected it with the Marcaine mixture, 10 mL was then administered and using a #15 scalpel blade and Adson forceps, an elliptical incision to incorporate the skin, subcutaneous tissues and visible glandular tissue was excised and cautery was used to complete the excision. Once I completed the excision, I did not see any glandular tissue in the subcutaneous tissues. Bleeding points were controlled with cautery and pressure. The wound was then reapproximated with subdermal buried interrupted 3-0 PDS sutures and the epidermis was sealed with Dermabond, ending the operative procedure. Estimated blood loss 2 mL. Sponge and instrument count correct. The patient was taken off laryngeal mass, returned to recovery in satisfactory condition. <ELECTRONICALLY SIGNED> By: Yajaira Gonzalez MD 09/19/20 1738 1227 1249Yajaira Gonzalez MD /nt
--- NOTE | 2020-09-21 10:07 | PATH ---
[address] [address] PATHOLOGY RPT PROCEDURE Name: SYDNEE DE PAZ Room: [facility].#: [id number] Admission: 09/18/20 Date of : 64 Discharge: Report #: [id number] Path Case #: [id number] LCA Accession Number: [id number] . 01 Material submitted: . groin - LEFT GROIN HIDRADENITIS. Modifiers: left . 01 Clinical history: . HIDRADENITIS . 02 Diagnosis: Left groin hidradenitis: - Benign skin with features typical of hidradenitis including chronic, acute and foreign body-type granulomatous inflammation and fibrosis. (MINISTERIO:sarahy; 09/20/2020) MBR 09/20/2020 [facility]3 Local . 02 Electronically signed: . Neo Nice MD, Pathologist NPI- [id number] . 01 Gross description: . The specimen is received in formalin, labeled "Sydnee De Paz, eleanorradenitis". The site is further designated on the requisition as, "left groin hidradenitis". Received is an ellipse of pale pacheco skin, which has been previously longitudinally incised, with attached underlying fibroadipose tissue measuring 3.5 x 1.3 x 1.5 cm in greatest dimensions. Sectioning reveals bright yellow to hemorrhagic cut surfaces. No distinct nodules or lesions are noted grossly. The specimen is submitted representatively in cassettes A1 and A2. (CAA; 09/19/2020) QAC/QAC 09/19/2020 1247 Local . 02 Pathologist provided ICD-10: L73.2 . 02 CPT . 791135 Specimen Comment: A courtesy copy of this report has been sent to [phone], [phone] Specimen Comment: [phone] Specimen Comment: Report sent to / DR LEWIS Performed at: [address] [id number] MD Duglas Ferguson MD Phone: [phone] Performed at: 02 [place] [address] PATHOLOGY RPT PROCEDURE Name: YADIRA,SYDNEE Joni Room: [facility].#: [id number] Admission: 09/18/20 Date of : 64 Discharge: Report #: [id number] Path Case #: [id number] [address], [place] [id number] MD Neo Nice MD Phone: [phone]
== END | disposition home or self-care (01) ==
LOC: M.SUR 09-11 07:23
PROVIDERS: ATTEND Surgery
DX: L73.2 Hidradenitis suppurativa (principal); Z79.899 Other long term (current) drug therapy; Z98.890 Other specified postprocedural states

== ENCOUNTER → 2020-09-25 | Outpatient (CLI) | payer OTHER, MEDICAID | LOC: M.WC 08:44 | PROVIDERS: ATTEND Surgery | DX: L02.214 Cutaneous abscess of groin (principal); L73.2 Hidradenitis suppurativa; E11.9 Type 2 diabetes mellitus without complications; E78.5 Hyperlipidemia, unspecified; E66.01 Morbid (severe) obesity due to excess calories; G47.30 Sleep apnea, unspecified; I10 Essential (primary) hypertension; J44.9 Chronic obstructive pulmonary disease, unspecified; F17.200 Nicotine dependence, unspecified, uncomplicated; F41.9 Anxiety disorder, unspecified; F31.9 Bipolar disorder, unspecified; Z68.42 Body mass index [BMI] 45.0-49.9, adult; Z86.73 Personal history of transient ischemic attack (TIA), and cerebral infarction without residual deficits ==

== ENCOUNTER → 2020-10-02 | Outpatient (CLI) | payer OTHER, MEDICAID | LOC: M.WC 08:27 | PROVIDERS: ATTEND Surgery | DX: L02.214 Cutaneous abscess of groin (principal); L73.2 Hidradenitis suppurativa; E11.9 Type 2 diabetes mellitus without complications; E78.5 Hyperlipidemia, unspecified; E66.01 Morbid (severe) obesity due to excess calories; G47.30 Sleep apnea, unspecified; I10 Essential (primary) hypertension; J44.9 Chronic obstructive pulmonary disease, unspecified; F17.200 Nicotine dependence, unspecified, uncomplicated; F41.9 Anxiety disorder, unspecified; F31.9 Bipolar disorder, unspecified; Z68.42 Body mass index [BMI] 45.0-49.9, adult; Z86.73 Personal history of transient ischemic attack (TIA), and cerebral infarction without residual deficits ==

== ENCOUNTER → 2020-10-23 | Outpatient (CLI) | payer OTHER, MEDICAID | LOC: M.WC 10-16 09:00 | PROVIDERS: ATTEND Surgery | DX: L02.214 Cutaneous abscess of groin (principal); L73.2 Hidradenitis suppurativa; E11.9 Type 2 diabetes mellitus without complications; E78.5 Hyperlipidemia, unspecified; E66.01 Morbid (severe) obesity due to excess calories; G47.30 Sleep apnea, unspecified; I10 Essential (primary) hypertension; J44.9 Chronic obstructive pulmonary disease, unspecified; F17.200 Nicotine dependence, unspecified, uncomplicated; F41.9 Anxiety disorder, unspecified; F31.9 Bipolar disorder, unspecified; Z68.42 Body mass index [BMI] 45.0-49.9, adult; Z86.73 Personal history of transient ischemic attack (TIA), and cerebral infarction without residual deficits ==

== ENCOUNTER → 2020-11-06 | Outpatient (CLI) | payer OTHER, MEDICAID | LOC: M.WC 08:43 | PROVIDERS: ATTEND Surgery | DX: L02.214 Cutaneous abscess of groin (principal); L73.2 Hidradenitis suppurativa; E11.9 Type 2 diabetes mellitus without complications; E78.5 Hyperlipidemia, unspecified; E66.01 Morbid (severe) obesity due to excess calories; G47.30 Sleep apnea, unspecified; I10 Essential (primary) hypertension; J44.9 Chronic obstructive pulmonary disease, unspecified; F17.200 Nicotine dependence, unspecified, uncomplicated; F41.9 Anxiety disorder, unspecified; F31.9 Bipolar disorder, unspecified; Z68.42 Body mass index [BMI] 45.0-49.9, adult; Z86.73 Personal history of transient ischemic attack (TIA), and cerebral infarction without residual deficits ==

== ENCOUNTER → 2020-11-13 | Outpatient (CLI) | payer OTHER, MEDICAID | LOC: M.WC 08:27 | PROVIDERS: ATTEND Emergency Medicine Undersea and Hyperbaric Medicine | DX: L02.214 Cutaneous abscess of groin (principal); L73.2 Hidradenitis suppurativa; E11.9 Type 2 diabetes mellitus without complications; E78.5 Hyperlipidemia, unspecified; E66.01 Morbid (severe) obesity due to excess calories; G47.30 Sleep apnea, unspecified; I10 Essential (primary) hypertension; J44.9 Chronic obstructive pulmonary disease, unspecified; F17.200 Nicotine dependence, unspecified, uncomplicated; F41.9 Anxiety disorder, unspecified; F31.9 Bipolar disorder, unspecified; Z68.42 Body mass index [BMI] 45.0-49.9, adult; Z86.73 Personal history of transient ischemic attack (TIA), and cerebral infarction without residual deficits ==

== ENCOUNTER 2021-01-17 12:58 | Emergency (ER) | payer OTHER, MEDICAID ==
[~2021-01-17] VITALS: Ht 170.2 cm; Wt 123.8 kg
--- NOTE | ~2021-01-17 | EMS ---
[address] [address] EMS Patient Care Report Name: SYDNEE MAY [id number] Admission: 01/17/21 Attend Phys: Discharge: 01/17/21 Date of : 64 Report #: [id number] THIS REPORT FOR: //name// Report Transmitted: 01/22/2021 01:55 EMS Care Summary [place] [employer] [facility] Incident [id number] @ 01/17/2021 12:15 Incident Location [address] Patient SYDNEE MAY Male, 60 Years 1960 Patient Address [address] [place] [address] Patient History Diabetes, Chief Complaint dizziness Disposition Transported No Lights/[place] Reason Falls Transported To [facility] Narrative Patient was found by staff at the assisted living center laying on the floor after the patient had fallen off of the end of his bed while trying to stand up. The staff member that found the patient called 911 and med 2 was dispatched to [facility] for a 60 year old male that had fallen. Upon arrival on scene the patient was found in supine position on the floor at the end of his bed. The patient was checked for any trauma to his body, and nothing was found, that wasn't already normal for patient. vitals were obtained after the patient was assisted up off of the floor. The patient was convinced to go get checked out do to the fact that he was slightly confused at random moments, and seemed [facility] [address] [place] [address] EMS Patient Care Report Name: YADIRASYDNEE LIANG Room: [facility]#: [id number] Admission: 01/17/21 Attend Phys: Discharge: 01/17/21 Date of : 64 Report #: [id number] sluggish. The patient was then assisted to the stretcher and moved to the med unit. Transport began immediately after loading the patient. Vitals were monitored during transport with no complications. The patient was transferred to care of the hospital staff, and med 2 returned in service. Initial Vitals @12:50P: 88,R: 12,BP: 124/78,Pain: 0/10,GCS: 15,SpO2: 96,Revised Trauma: 12, @12:30P: 86,R: 12,BP: 120/80,Pain: 0/10,GCS: 15,SpO2: 96,Revised Trauma: 12, @12:22P: 91,R: 12,BP: 118/58,Pain: 1/10,GCS: 15,Glucose: 156,SpO2: 95,Revised Trauma: 12, Assessments @12:50 Impression Dizziness Timeline 12:13,Call Received 12:15,Dispatched 12:15,En Route 12:16,Initial Responder On Scene 12:16,On Scene 12:17,At Patient 12:22,BP: 118/58 M,PULSE: 91,RR: 12 R,SPO2: 95 Ox,ETCO2: ,B,PAIN: 1,GCS: 15, 12:30,BP: 120/80 M,PULSE: 86,RR: 12 R,SPO2: 96 Ox,ETCO2: ,BG: ,PAIN: 0,GCS: 15, 12:36,Depart Scene 12:50,BP: 124/78 M,PULSE: 88,RR: 12 R,SPO2: 96 Ox,ETCO2: ,BG: ,PAIN: 0,GCS: 15, 12:56,At Destination 12:58,Transfer Patient 13:27,Call Closed 13:27,In District Disclaimer v1.1 Copyright 2020 [employer] This EMS Care Summary contains data elements from the applicable legal record (which may be displayed differently). It is designed to provide pertinent information for the following purposes: continuity of care, clinical quality, and state data reporting. The complete legal record is available to ED staff and administrators of the receiving hospital in [employer]'s Patient Tracker. All data is provided "as is."
[2021-01-17 13:20] LABS: ABSOLUTE EOSINOPHILS 0.5 thou/uL (0.0-0.7); ABSOLUTE MONOCYTES 0.6 thou/uL (0.0-1.2); ABSOLUTE NEUTROPHILS 6.5 thou/uL (1.6-8.1); BASOPHILS 0.5 %; EOSINOPHILS 6.2 %; HEMATOCRIT 37.2 % (42.0-52.0); HEMOGLOBIN 12.2 gm/dL (14.0-18.0); LYMPHOCYTES 11.5 %; MCH 31.2 pg (26.0-34.0); MCHC 32.7 g/dL (28.0-37.0); MCV 95.3 fL (80.0-100.0); MONOCYTES 7.1 %; MPV 7.8 fl. (7.2-11.1); NUCLEATED RBCS 0 /100WBC; PLATELET COUNT* 148 thou/uL (150-400); POLYS 74.7 %; RDW-CV 13.6 % (10.5-14.5); WBC 8.7 thou/uL (4.0-11.0)
[2021-01-17 13:31] LABS: CALCIUM 9.4 mg/dL (8.5-10.1); CREATININE 1.7 mg/dL (0.6-1.3); POTASSIUM 3.5 mmol/L (3.5-5.1)
[2021-01-17 13:33] LABS: APTT 24.5 Seconds (25.0-31.3); PROTIME 10.6 Seconds (9.20-11.50)
[2021-01-17 13:43] LABS: ALBUMIN 3.6 g/dL (3.4-5.0); CK-MB MASS 2.6 ng/mL (<0.5-3.6); TOTAL BILIRUBIN 0.5 mg/dL (<0.1-1.0)
[2021-01-17] MEDS ORDERED: ZPAK PO (15:11)
--- NOTE | 2021-01-17 15:58 | EKG ---
[place] [address] ELECTROCARDIOGRAM REPORT Name: SYDNEE MAY Room: [facility]#: [id number] Admission: 01/17/21 Attend Phys: Discharge: Date of : 64 Date of Service: 01/17/21 1323 Report #: [id number] THIS REPORT FOR: //name// [facility] ED Test Date: 2021-01-17 Test Time: 13:23:25 Pat Name: SYDNEE MAY Department: Room: Gender: Dumbwaiter Operator: KIRSTEN : 1960 Requested By: Aakash Durán Order Number: [id number] MD: Sydnee Alvarado Measurements Intervals [place] Rate: 79 P: 42 ME: 192 QRS: 40 QRSD: 106 T: 28 QT: 379 QTc: 435 Interpretive Statements Sinus rhythm Low voltage, precordial leads Baseline wander in lead(s) V2 Compared to ECG 06/02/2020 09:34:40 No significant changes Electronically Signed On 01-17-2021 15:57:56 CDT by Sydnee Alvarado [email or web address] <ELECTRONICALLY SIGNED> By: Sydnee Alvarado MD, [facility] 01/17/21 1557 1323 1323 Sydnee Alvarado MD, [facility] /EPI
[2021-01-17 16:41] VITALS: BP 96/40
== END 2021-01-17 17:49 | disposition home or self-care (01) ==
LOC: M.ERS 12:58
PROVIDERS: Family Medicine
DX: S22.059A Unspecified fracture of T5-T6 vertebra, initial encounter for closed fracture (principal); Z20.822 Contact with and (suspected) exposure to COVID-19; J18.9 Pneumonia, unspecified organism; R53.1 Weakness; I10 Essential (primary) hypertension; E71.19 Other disorders of branched-chain amino-acid metabolism; E78.5 Hyperlipidemia, unspecified; F32.9 Major depressive disorder, single episode, unspecified; F41.9 Anxiety disorder, unspecified; Z79.899 Other long term (current) drug therapy; Z79.82 Long term (current) use of aspirin; Z88.5 Allergy status to narcotic agent; Z88.8 Allergy status to other drugs, medicaments and biological substances; W06.XXXA Fall from bed, initial encounter; Y93.89 Activity, other specified; Y92.89 Other specified places as the place of occurrence of the external cause; Y99.8 Other external cause status

== ENCOUNTER 2021-02-09 13:54 | Inpatient (IN) | payer OTHER, MEDICAID ==
[~2021-02-09] VITALS: Ht 170.2 cm; Wt 124.1 kg
--- NOTE | ~2021-02-09 | EMS ---
[place] [address] EMS Patient Care Report Name: SYDNEE MAY Room: [facility]#: [id number] Admission: Attend Phys: Discharge: Date of : 64 Report #: [id number] THIS REPORT FOR: //name// Report Transmitted: 02/09/2021 14:14 EMS Care Summary [place] [employer] [facility] Incident [id number] @ 02/09/2021 13:21 Incident Location [address] Patient SYDNEE MAY Male, 60 Years 1960 Patient Address [address] [place] [id number] Patient History Diabetes,Hypertension (HTN), Patient Allergies No known allergies, Patient Medications None Reported, Chief Complaint lethargic Disposition Transported No Lights/[place] Dispatch Reason Sick Person Transported To [facility] Narrative Dispatched 911 to [address] for a patient that was said to be weak. While in route, Dispatch updated Company 1 with the following information. Patient was said to be located in [facility]. Nothing further was noted prior to our arrival. [place] [id number] EMS Patient Care Report Name: SYDNEE MAY Room: PRE [facility].#: [id number] Admission: Attend Phys: Discharge: Date of : 64 Report #: [id number] Once on scene, the patient was found sitting on his bed. He was AOX3 with a GCS of 15. He was a little sluggish to respond and stated he just hadn't been feeling right lately. He was now assisted to the cot and packaged for transport. While in route, the patient was continuously monitored. He was in a normal rhythm and vitals showed a hypotension and low blood sugar. All other vitals were within the normal limits. An Iv was now started and set to keep the vein open. D-10 was also started and patient stated after 150ml he was already starting the feel better. Patient was left in the position of most comfort and secondary exam was completed. Nothing pertinent was noted during the secondary. Patients BG was now within the normal limits. On arrival to [facility], we were shown to room 4. Patient was assisted to the Hospital bed and left with all belongings. He was now asked to sign PCR and report was given to the RN. RN now signed PCR and the patient was left in the care of the staff at [facility]. Initial Vitals @13:42P: 82,R: 12,BP: 78/42,Glucose: 200,SpO2: 96, @13:52P: 86,R: 12,BP: 78/42,SpO2: 96, @13:32P: 85,R: 12,BP: 90/34,GCS: 15,Glucose: 50,SpO2: 96,Revised Trauma: 12, Assessments @13:40MENTAL:No Abnormalities,SKIN:No Abnormalities,HEENT:Head/Face: No Abnormalities,Eyes: No Abnormalities,Neck/Airway: No Abnormalities,LUNG SOUNDS:General: No Abnormalities,Left Upper: No Abnormalities,Right Upper: No Abnormalities,Left Lower: No Abnormalities,Right Lower: No Abnormalities,ABDOMEN:General: No Abnormalities,Left Upper: No Abnormalities,Right Upper: No Abnormalities,Left Lower: No Abnormalities,Right Lower: No Abnormalities,PELVIS//GI:No Abnormalities,EXTREMITIES:Left Arm: No Abnormalities,Right Arm: No Abnormalities,Left Leg: No Abnormalities,Right Leg: No Abnormalities,PULSE:NEURO:No Abnormalities, Impression Diabetic Hypoglycemia Procedures @13:31Lactated Ringers 500cc (20 ga) Site: Forearm-LeftResponse: ImprovedSucceeded@13:33Dextrose 10% - 250 Milliliters (ml) - Intravenous (IV)Response: Improved Timeline 13:20,Call Received 13:21,Dispatched 13:21,[place] [address] EMS Patient Care Report Name: SYDNEE MAY Room: PRE [facility]#: [id number] Admission: Attend Phys: Discharge: Date of : 64 Report #: [id number] 13:24,Initial Responder On Scene 13:24,On Scene 13:25,At Patient 13:30,Depart Scene 13:31,Lactated Ringers 500cc 20 ga Site: Forearm-Left,Response: ImprovedSucceeded, 13:32,BP: 90/34 M,PULSE: 85,RR: 12 R,SPO2: 96 Ox,ETCO2: ,B,PAIN: ,GCS: 15, 13:33,Dextrose 10% - 250 Milliliters (ml) - Intravenous (IV),Response: Improved 13:42,BP: 78/42 M,PULSE: 82,RR: 12 R,SPO2: 96 Ox,ETCO2: ,B,PAIN: ,GCS: , 13:50,At Destination 13:52,BP: 78/42 M,PULSE: 86,RR: 12 R,SPO2: 96 Ox,ETCO2: ,BG: ,PAIN: ,GCS: , 13:53,Transfer Patient 14:04,Call Closed 14:19,In District Disclaimer v1.1 Copyright 2020 [employer] This EMS Care Summary contains data elements from the applicable legal record (which may be displayed differently). It is designed to provide pertinent information for the following purposes: continuity of care, clinical quality, and state data reporting. The complete legal record is available to ED staff and administrators of the receiving hospital in [employer]'s Patient Tracker. All data is provided "as is."
[~2021-02-09 13:54] MED LIST changes: +LOPRESSOR50 MG PO; -TOPROL XL50 MG PO; +ZPAK PO
[2021-02-09 13:57] VITALS: BP 82/35
[2021-02-09] MEDS ORDERED: FLUOXETINE HCL40 MG PO (14:08)
[2021-02-09] MEDS ORDERED: LISINOPRIL-HCT1 EACH PO (14:11)
[2021-02-09] MEDS ORDERED: GLIPIZIDE 10 MG10 MG PO (14:11)
[2021-02-09] MEDS ORDERED: DORYX MPC120 MG PO (14:11)
[2021-02-09] MEDS ORDERED: LISINOPRIL-HCT1 EAC2 PO (14:12)
[2021-02-09 14:34] LABS: ABSOLUTE EOSINOPHILS 0.6 thou/uL (0.0-0.7); ABSOLUTE MONOCYTES 0.5 thou/uL (0.0-1.2); ABSOLUTE NEUTROPHILS 5.7 thou/uL (1.6-8.1); BASOPHILS 0.6 %; EOSINOPHILS 7.3 %; HEMATOCRIT 31.8 % (42.0-52.0); HEMOGLOBIN 10.5 gm/dL (14.0-18.0); LYMPHOCYTES 12.7 %; MCH 31.9 pg (26.0-34.0); MCHC 33.1 g/dL (28.0-37.0); MCV 96.6 fL (80.0-100.0); MONOCYTES 6.2 %; MPV 7.9 fl. (7.2-11.1); NUCLEATED RBCS 0 /100WBC; PLATELET COUNT* 123 thou/uL (150-400); POLYS 73.2 %; RBC 3.29 mil/uL (4.50-6.00); RDW-CV 14.4 % (10.5-14.5); WBC 7.8 thou/uL (4.0-11.0)
[2021-02-09 14:45] LABS: CALCIUM 8.5 mg/dL (8.5-10.1); CREATININE 1.8 mg/dL (0.6-1.3); POTASSIUM 3.7 mmol/L (3.5-5.1)
[2021-02-09 14:56] LABS: ALBUMIN 3.2 g/dL (3.4-5.0); TOTAL BILIRUBIN 0.4 mg/dL (<0.1-1.0); TOTAL PROTEIN 5.8 g/dL (6.4-8.2)
--- NOTE | 2021-02-09 15:09 | NUR ---
RIGHT BASILIC VESSEL ACCESSED FOR 5 [place]ER TRIPLE LUMEN PICC. LINE PRE-TRIMMED TO 47 CM AND ADVANCED TO THE ZERO BALTA WITH NO RESISTANCE MET. UPPER ARM CIRCUMFERENCE ABOVE INSERTION SITE= 16 1/2". SHERLCOK MAGNET AND 3CG CONFIRMATION OF TIP TERMINATION AT THE CAVOATRIAL JUNCTION AT 3 CM OUT. GUIDE WIRE REMOVED, LINE FLUSHED AND INSERTION SITE DRESSED. REPORT GIVEN TO LAURA PARK.
--- NOTE | 2021-02-09 16:50 | EKG ---
[place] [address] ELECTROCARDIOGRAM REPORT Name: SYDNEE MAY Room: [place] [address] ADM IN M.R.#: [id number] Admission: 02/09/21 Attend Phys: Maritza Escalante, Discharge: Date of : 64 Date of Service: 02/09/21 1430 Report #: [id number] THIS REPORT FOR: //name// [facility] ED Test Date: 2021-02-09 Test Time: 14:30:01 Pat Name: SYDNEE BARRETTUPIN Department: Room: [facility] Gender: M Assembler Carbon Brushes: TONEY : 1960 Requested By: Aakash Durán Order Number: [id number] MD: Lamont Gaming Measurements Intervals [place] Rate: 79 P: 72 NV: 163 QRS: 48 QRSD: 109 T: 14 QT: 388 QTc: 445 Interpretive Statements Sinus rhythm Low voltage, precordial leads Baseline wander in lead(s) V6 Compared to ECG 01/17/2021 13:23:25 No significant changes Electronically Signed On 02-09-2021 16:50:32 CDT by Lamont Gaming [email or web address] <ELECTRONICALLY SIGNED> By: Lamont Gaming MD, [facility] 02/09/21 1650 1430 1430 Lamont Gaming MD, FAC /EPI
[2021-02-09 20:00] VITALS: BP 125/62
[2021-02-09] MEDS ORDERED: ACETAZOLAMIDE250 M1 PO (22:41)
[2021-02-10 00:26] VITALS: BP 112/48
[2021-02-10 04:28] LABS: HEMATOCRIT 31.5 % (42.0-52.0); HEMOGLOBIN 10.5 gm/dL (14.0-18.0); MCH 32.1 pg (26.0-34.0); MCHC 33.5 g/dL (28.0-37.0); MCV 95.7 fL (80.0-100.0); MPV 7.8 fl. (7.2-11.1); RBC 3.29 mil/uL (4.50-6.00); RDW-CV 14.6 % (10.5-14.5); WBC 6.4 thou/uL (4.0-11.0)
[2021-02-10 04:36] VITALS: BP 140/63
[2021-02-10 05:01] LABS: CALCIUM 7.9 mg/dL (8.5-10.1); CREATININE 1.3 mg/dL (0.6-1.3); MAGNESIUM 1.8 mg/dL (1.8-2.4); POTASSIUM 3.3 mmol/L (3.5-5.1); TOTAL BILIRUBIN 0.4 mg/dL (<0.1-1.0); TOTAL PROTEIN 5.7 g/dL (6.4-8.2)
--- NOTE | 2021-02-10 07:34 | NUR ---
RECIEVED REPORT FROM ED RN. PT TRANSFERRED TO 219. PT A&OX4. VSS. 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 ADMISSION HISTORY & PHYSICAL ASSESSMENT COMPLETED AND CHARTED. RECONCILED MEDS-VERIFIED TO [facility] RN. PT ON RA. PT TRACING SR ON TELE. PT DENIES ANY PAIN. PT REQUESTED HOME NIGHT MEDS-DR PEDERSON MADE AWARE WITH NEW ORDERS. FALL PRECAUTIONS IN PLACE. CALL LIGHT WITHIN REACH.
[2021-02-10 08:00] VITALS: BP 140/73
[2021-02-10 12:00] VITALS: BP 117/56
[2021-02-10 14:26] LABS: URINE BILIRUBIN NEGATIVE (Negative); URINE BLOOD NEGATIVE (Negative); URINE CLARITY CLEAR; URINE COLOR YELLOW; URINE GLUCOSE-RANDOM NEGATIVE (Negative); URINE KETONES NEGATIVE (Negative); URINE LEUKOCYTES-REFLEX NEGATIVE (Negative); URINE NITRITE-REFLEX NEGATIVE (Negative); URINE PROTEIN NEGATIVE (Negative); URINE SPECIFIC GRAVITY 1.015 (1.005-1.030); URINE UROBILINOGEN 0.2 E.U./dl (0.2-1.0)
[2021-02-10 16:00] VITALS: BP 146/67
--- NOTE | 2021-02-10 19:04 | NUR ---
ASSUMED PT CARE AT 0730, PT AOX4 AND VERY UNSTEADY ON FEET, FALL PRECAUTIONS IN PLACE. PT VOIDING FREQUENTLY THIS MORNING W/ LITTLE OUTPUT SO PT BLADDER SCANNED, OVER 900 ML IN BLADDER, DR PEDERSON NOTIFIED AND SINGH PLACED, ALMOST 1200 OUT IMMEDIATELY. PT EITHER BEING MOVED Q2H OR MOVING SELF AROUND IN BED.
[2021-02-10 20:05] VITALS: BP 144/69
[2021-02-11] VITALS: BP 133/61
[2021-02-11 04:00] VITALS: BP 109/54
[2021-02-11 04:46] LABS: HEMATOCRIT 31.5 % (42.0-52.0); HEMOGLOBIN 10.6 gm/dL (14.0-18.0); MCH 32.2 pg (26.0-34.0); MCHC 33.6 g/dL (28.0-37.0); MCV 95.8 fL (80.0-100.0); MPV 7.9 fl. (7.2-11.1); RBC 3.29 mil/uL (4.50-6.00); RDW-CV 14.2 % (10.5-14.5); WBC 7.1 thou/uL (4.0-11.0)
[2021-02-11 04:51] LABS: CALCIUM 7.8 mg/dL (8.5-10.1); CREATININE 1.1 mg/dL (0.6-1.3); MAGNESIUM 1.8 mg/dL (1.8-2.4); POTASSIUM 3.7 mmol/L (3.5-5.1)
[2021-02-11 08:00] VITALS: BP 114/48
[2021-02-11 13:22] VITALS: BP 100/55
[2021-02-11 19:36] VITALS: BP 136/55
[2021-02-11 20:24] VITALS: BP 139/54
[2021-02-12] VITALS: BP 115/50
[2021-02-12 04:00] VITALS: BP 124/52
--- NOTE | 2021-02-12 07:26 | NUR ---
PT IS ABLE TO COMMUNICATE HIS NEEDS TO STAFF EFFECTIVELY. HE HAS DENIED THE NEED FOR PAIN MEDICATION UP TO THIS TIME. SINGH HAS BEEN PATENT UP TO THIS TIME.
[2021-02-12 08:35] VITALS: BP 127/65
--- NOTE | 2021-02-12 09:59 | NUR ---
CM ASSESSMENT: PT A&O, AND INDEPENDENT WITH ADL'S. PT CURRENTLY RESIDES AT [facility] IN [place], AND INFORMS THAT HE HAS LIVED THERE FOR ABOUT 5 YRS. PT USES A WALKER FOR MOBILITY. PT INFORMS THAT HE IS CURRENTLY ON-SERVICE WITH HH, BUT COULD NOT RECALL THE NAME. PT HAS 0 HX OF SNF. CM TO CALL AND CONFIRM PT'S HH WITH [facility] STAFF. CM WILL REMAIN AVAILABLE TO ASSIST AND FOLLOW NEEDED. [facility] PHONE: [phone]
--- NOTE | 2021-02-12 10:47 | NUR ---
Nutrition: Pt admitted with hypoglycemia, weakness. Lives with spouse at [facility] and . Wt: 281# bed wt, 274# admit. Urinary retention, HTN, DM on insulin, agoraphobia, BG ok now, albumin 3. Meds: MVI, insulin, flomax. Assessed for high BMI. Regular diet is ordered. Will add carb count to diet order. Otherwise, mild risk at this time.
[2021-02-12 12:49] VITALS: BP 135/58
[2021-02-12 17:55] VITALS: BP 126/67
--- NOTE | 2021-02-12 18:40 | NUR ---
VSS. Mccormack dc'd this afternoon; no void as of end of shift. IVF dc'd. Pt now MedSurg status. Will continue to monitor.
[2021-02-12 20:49] VITALS: BP 133/60
[2021-02-13] VITALS: BP 144/61
--- NOTE | 2021-02-13 04:49 | NUR ---
PT IS ABLE TO COMMUNICATE HIS NEEDS TO STAFF EFFECTIVELY. HE HAS DENIED THE NEED FOR PAIN MEDICATION UP TO THIS TIME. HE HAS REFUSED TURNS SEVERAL TIMES DURING THIS SHIFT. SAMANTHA HAS BEEN PATENT UP TO THIS TIME. MED/SURG, NON-TELEMETRY, STATUS.
[2021-02-13 08:20] VITALS: BP 135/59
--- NOTE | 2021-02-13 13:11 | NUR ---
PLAN OF CARE: PHYSICIAN INFORMS OF PLAN FOR PT TO REMAIN INPT 1-2 MORE DAYS. UROLOGY CONSULTED AND P.T. EVAL IS PENDING AND NEEDED TO DETERMINE PT'S MOBILITY STATUS. PLAN REMAINS FOR THE PT TO RETURN TO [place] [facility] AT D/C WITH [facility] AT HOME HH. CM WILL REMAIN AVAILABLE TO ASSIST AND FOLLOW NEEDED.
[2021-02-13 19:55] VITALS: BP 122/60
--- NOTE | 2021-02-14 00:58 | NUR ---
ASSUMED CARE OF PT AT 1900. PT IS ALERT AND ORIENTED. VSS. PERRLA. NO COMPLAINTS OF PAIN. PT IS MED SURG STATUS. PT IS SLEEPING QUIETLY IN BED. RESPIRATIONS ARE EVEN AND NONLABORED. WILL CONTINUE TO MONITOR PT.
[2021-02-14 04:00] VITALS: BP 124/53
[2021-02-14 08:53] VITALS: BP 129/57
[2021-02-14 09:57] VITALS: BP 129/57
[2021-02-14 12:00] VITALS: BP 99/56
[2021-02-14 16:00] VITALS: BP 122/54
--- NOTE | 2021-02-14 16:13 | NUR ---
PLAN OF CARE: PHYSICIAN INFORMS OF PLAN TO CONSULT INPT ACUTE REHAB UNIT. PHYSICIAN EXPRESSED CONCERN THAT ABOUT PT'S MOBILITY AND ABILITY TO RETURN TO [facility] AT [facility]. PT/[facility] PENDING. PLAN FOR PT D/C IS ARU VS SNF. CM WILL REMAIN AVAILABLE TO ASSIST AND FOLLOW NEEDED.
[2021-02-14 19:35] VITALS: BP 132/60
--- NOTE | 2021-02-15 00:08 | NUR ---
ASSUMED CARE OF PT AT 1900. PT IS ALERT AND ORIENTED. VSS. NO COMPLAINTS OF PAIN. PT IS ON ROOM AIR. PT DOES HAVE A URINARY CATHETER IN PLACE. PT IS IN SINUS RYTHM ON THE TELEMETRY. PT IS RESTING COMFORTABLY IN BED. RESPIRATIONS ARE EVEN AND NONLABORED. WILL CONTINUE TO MONITOR PT.
[2021-02-15 08:00] VITALS: BP 124/54
[2021-02-15] MEDS ORDERED: FLOMAX0.4 MG PO (10:02)
[2021-02-15 11:39] VITALS: BP 129/57
--- NOTE | 2021-02-15 11:54 | NUR ---
PLAN FOR THIS PT TO D/C TODAY BACK TO [facility] WITH HH. CM SPOKE TO THE PT TO DISCUSS THIS. PT IN AGREEMENT. [facility] NOTIFIED OF PT'S D/C AND FAXED D/C HH ORDERS. W/C VAN TRANSPORT ARRANGED WITH [facility] FOR [id number]. RN INFORMED OF THE PT'S TIME OF TRANSPORT AND WHERE TO CALL REPORT. CM WILL REMAIN AVAILABLE TO ASSIST AND FOLLOW NEEDED. [facility] PHONE: [phone] [facility] PHONE: [phone] [employer] [facility] PHONE: [phone]
[2021-02-15 12:08] VITALS: BP 129/57
[2021-02-15 12:27] VITALS: BP 129/57
--- NOTE | 2021-02-15 12:55 | NUR ---
DISCHARGE ORDERS RECEIVED. CONTINUES TO DENY DIZZINESS, NAUSEA OR ANY DISCOMFORT TO NURSING. TOLERATING DIET. ROOM AIR, SHOWING NO SIGN OF RESPIRATORY DISTRESS. PATIENT TO TRANSFER TO [facility]/ VAN SCHEDULED TO PLAN CONSULTANT PATIENT AROUND 1400 TO 1500 FOR DISCHARGE TO ASSISTED LIVING FACILITY. REPORT CALLED GIVEN TO TANESHA - ADMIN AT [phone] WHOM VERBALIZED UNDERSTANDING. DISCHRAGE INSTRUCTIONS, REVIEWED WITH PATIENT. CALL LIGHT WITHIN REACH.
--- NOTE | 2021-02-15 14:39 | NUR ---
[facility] bedside meeting (NTN): Patient will be returning to [facility] in [place] today. We called Dr. Mrax and set up appontment for February 22 at 9;30. Patient will be homebound. He understands that a nurse will come assess him and put a plan in place for what other care he needs (PT/OT) tHE DC summary had listed [facility] as the HH provider but they declined him and Dr. Weathers has added addendum to state [facility] is his HH provider,
== END 2021-02-15 15:15 | disposition home health service (06) | DRG 638 ==
LOC: M.ERS 13:54 → M.TBA-ER 16:27 → M.2W 16:27
PROVIDERS: Family Medicine; ADMIT Internal Medicine; ATTEND Internal Medicine
DX: E11.649 Type 2 diabetes mellitus with hypoglycemia without coma (principal); Z68.41 Body mass index [BMI] 40.0-44.9, adult; N17.0 Acute kidney failure with tubular necrosis; E66.01 Morbid (severe) obesity due to excess calories; Z20.822 Contact with and (suspected) exposure to COVID-19; I10 Essential (primary) hypertension; E78.5 Hyperlipidemia, unspecified; F32.9 Major depressive disorder, single episode, unspecified; F41.9 Anxiety disorder, unspecified; F17.210 Nicotine dependence, cigarettes, uncomplicated; L73.2 Hidradenitis suppurativa; F40.01 Agoraphobia with panic disorder; R33.9 Retention of urine, unspecified; Z79.899 Other long term (current) drug therapy; Z88.6 Allergy status to analgesic agent; Z88.8 Allergy status to other drugs, medicaments and biological substances; Z79.4 Long term (current) use of insulin

== ENCOUNTER 2021-02-16 01:19 | Emergency (ER) | payer OTHER, MEDICAID ==
[~2021-02-16] VITALS: Ht 170.2 cm; Wt 121.6 kg
[~2021-02-16 01:19] MED LIST changes: +ACETAZOLAMIDE250 M1 PO; +DORYX MPC120 MG PO; +FLUOXETINE HCL40 MG PO; +LISINOPRIL-HCT1 EAC2 PO; +LISINOPRIL-HCT1 EACH PO
[2021-02-16 02:01] LABS: ABSOLUTE EOSINOPHILS 0.1 thou/uL (0.0-0.7); ABSOLUTE LYMPHOCYTES 1.2 thou/uL (0.8-5.3); ABSOLUTE MONOCYTES 0.5 thou/uL (0.0-1.2); ABSOLUTE NEUTROPHILS 8.4 thou/uL (1.6-8.1); BASOPHILS 0.3 %; EOSINOPHILS 1.2 %; HEMATOCRIT 35.7 % (42.0-52.0); HEMOGLOBIN 11.9 gm/dL (14.0-18.0); LYMPHOCYTES 11.4 %; MCH 31.7 pg (26.0-34.0); MCHC 33.3 g/dL (28.0-37.0); MCV 95.1 fL (80.0-100.0); MONOCYTES 5.3 %; NUCLEATED RBCS 0 /100WBC; PLATELET COUNT* 114 thou/uL (150-400); POLYS 81.8 %; RBC 3.75 mil/uL (4.50-6.00); RDW-CV 14.3 % (10.5-14.5); WBC 10.2 thou/uL (4.0-11.0)
[2021-02-16 02:10] LABS: CALCIUM 8.9 mg/dL (8.5-10.1); CREATININE 1.5 mg/dL (0.6-1.3); POTASSIUM 3.9 mmol/L (3.5-5.1)
[2021-02-16 02:21] LABS: ALBUMIN 3.4 g/dL (3.4-5.0); MAGNESIUM 2.3 mg/dL (1.8-2.4); TOTAL BILIRUBIN 0.4 mg/dL (<0.1-1.0); TOTAL PROTEIN 6.6 g/dL (6.4-8.2)
[2021-02-16 05:32] LABS: URINE BILIRUBIN NEGATIVE (Negative); URINE BLOOD 3+ (Negative); URINE CLARITY CLEAR; URINE COLOR YELLOW; URINE GLUCOSE-RANDOM NEGATIVE (Negative); URINE KETONES TRACE (Negative); URINE LEUKOCYTES-REFLEX NEGATIVE (Negative); URINE NITRITE-REFLEX NEGATIVE (Negative); URINE PROTEIN NEGATIVE (Negative); URINE UROBILINOGEN 0.2 E.U./dl (0.2-1.0)
[2021-02-16 05:41] LABS: BACTERIA-REFLEX None Seen /HPF (None Seen); CASTS None Seen /LPF (None Seen); CRYSTALS None Seen /LPF (None Seen); MUCUS None Seen strn/LPF (None Seen); SQUAMOUS 0-3 Few /LPF (0-3); URINE WBC-REFLEX 0-5 Rare /HPF (0-5)
[2021-02-16 08:45] VITALS: BP 141/48
--- NOTE | 2021-02-16 12:01 | EKG ---
[place] [address] ELECTROCARDIOGRAM REPORT Name: MACIEL MAY Room: [facility]#: [id number] Admission: 02/16/21 Attend Phys: Discharge: 02/16/21 Date of : 64 Date of Service: 02/16/21 0121 Report #: [id number] THIS REPORT FOR: //name// [facility] ED Test Date: 2021-02-16 Test Time: 01:21:21 Pat Name: MACIEL MAY Department: Room: Gender: Neon Glass Blower: [place] : 1960 Requested By: Patsy Gonzalez Order Number: [id number] MD: Maciel Alvarado Measurements Intervals [place] Rate: 65 P: 62 ND: 178 QRS: 58 QRSD: 116 T: 32 QT: 461 QTc: 480 Interpretive Statements Sinus rhythm Nonspecific intraventricular conduction delay Low voltage, precordial leads Compared to ECG 02/09/2021 14:30:01 Intraventricular conduction delay now present Electronically Signed On 02-16-2021 12:01:30 CDT by Maciel Alvarado [email or web address] <ELECTRONICALLY SIGNED> By: Maciel Alvarado MD, FAC 02/16/21 1201 0121 0121 Maciel Alvarado MD, [facility] /EPI
== END 2021-02-16 08:45 | disposition home or self-care (01) ==
LOC: M.ERS 01:19
PROVIDERS: Emergency Medicine
DX: R53.1 Weakness (principal); R42 Dizziness and giddiness; I10 Essential (primary) hypertension; E11.9 Type 2 diabetes mellitus without complications; E78.5 Hyperlipidemia, unspecified; Z88.5 Allergy status to narcotic agent; Z88.8 Allergy status to other drugs, medicaments and biological substances; Z79.899 Other long term (current) drug therapy; Z79.82 Long term (current) use of aspirin

== ENCOUNTER 2021-02-17 12:17 | Inpatient (IN) | payer OTHER, MEDICAID ==
[~2021-02-17] VITALS: Ht 170.2 cm; Wt 122.5 kg
--- NOTE | ~2021-02-17 | EMS ---
[address] [address] EMS Patient Care Report Name: SYDNEE MAY Room: [facility]#: [id number] Admission: 02/17/21 Attend Phys: Discharge: Date of : 64 Report #: [id number] THIS REPORT FOR: //name// Report Transmitted: 02/17/2021 12:02 EMS Care Summary [facility] Incident [id number] @ 02/17/2021 11:39 Incident Location [address] [place] [address] Patient SYDNEE MAY Male, 60 Years 1960 Patient Address [address] [place] [address] Patient History Congestive Heart Failure (CHF),Chronic Obstructive Pulmonary Disease (COPD),Diabetes,Hypertension (HTN),Stroke/CVA, Patient Allergies No known allergies, Patient Medications Doxycycline, Lamotrigine, Humulin, Fluoxetine, ASA, Acetazolamide, Lisinopril, Alprazolam, Lovastatin, Tamsulosin, Victoza, Hydroxyzine, Metoprolol, Quetiapine, Chief Complaint Patient had a fall today and struck his head. Disposition Transported No Lights/[place] Reason Falls Transported To [address] [address] EMS Patient Care Report Name: SYDNEE MAY [id number] Admission: 02/17/21 Attend Phys: Discharge: Date of : 64 Report #: [id number] Narrative Dispatched to address noted for head pain after a prior fall/lift assist. Jazlyn hatch 1 and utility en route and on scene at time noted. Arrived and found the patients staff, leading us to his room in the back. Patient was alert and laying in bed. Patients hot roll laminator stated that he is now confused and the RN (home healthcare RN) wanted him transport. The RN was no longer there. Jazlyn CONWAY had helped the patient in a lift assisted earlier in the day and he had no complaints and was GCS of 15 at this time. Patient was GCS of 15 for me now and he stated he wanted to be seen at [facility] for care. Patient had no obvious injuries noted and was his normal unsteady self on his feet. Patient was pivoted and sat on stretcher, then buckled in. Once in ambulance, vitals with 4 lead ECG was obtained. Patients blood glucose was taken and transport was started. Patient denied an loss of consciousness and did not have any blood thinners marked on his medication list. While en route, vitals where taken at time noted with no major changes. Patient remained oriented as noted and radio report was given. Arrived and took patient to room 4. Patient was moved to the bed and RN took verbal report. RN signed for patient care and patient signed for self. END REPORT EMT-P Donte Isaac Initial Vitals @11:55P: 88,R: 14,BP: 121/73,Pain: 2/10,GCS: 15,Glucose: 134,SpO2: 99,Revised Trauma: 12,NM Suspected: false @12:11P: 90,R: 16,BP: 115/49,Pain: 2/10,GCS: 15,SpO2: 99,Revised Trauma: 12,NM Suspected: false Assessments @12:02MENTAL:Person Oriented,Event Oriented,Place Oriented,SKIN:HEENT:Head/Face: No Abnormalities,LUNG SOUNDS:General: No Abnormalities,ABDOMEN:General: No Abnormalities,PELVIS//GI:No Abnormalities,EXTREMITIES:Left Arm: No Abnormalities,Right Arm: No Abnormalities,Left Leg: No Abnormalities,Right Leg: No Abnormalities,PULSE:NEURO:No Abnormalities, [place] [address] EMS Patient Care Report Name: SYDNEE MAY Room: [facility]#: [id number] Admission: 02/17/21 Attend Phys: Discharge: Date of : 64 Report #: [id number] Timeline 11:36,Call Received 11:39,Dispatched 11:39,En Route 11:41,Initial Responder On Scene 11:41,On Scene 11:43,At Patient 11:52,Depart Scene 11:55,BP: 121/73 M,PULSE: 88,RR: 14 R,SPO2: 99 Ox,ETCO2: ,B,PAIN: 2,GCS: 15, 12:11,BP: 115/49 M,PULSE: 90,RR: 16 R,SPO2: 99 Ox,ETCO2: ,BG: ,PAIN: 2,GCS: 15, 12:14,At Destination 12:18,Transfer Patient 12:43,Call Closed 12:43,In District Disclaimer v1.1 Copyright 2020 [employer] This EMS Care Summary contains data elements from the applicable legal record (which may be displayed differently). It is designed to provide pertinent information for the following purposes: continuity of care, clinical quality, and state data reporting. The complete legal record is available to ED staff and administrators of the receiving hospital in [employer]'s Patient Tracker. All data is provided "as is."
[2021-02-17 12:20] VITALS: BP 133/69
[2021-02-17 14:46] LABS: HEMATOCRIT 34.4 % (42.0-52.0); HEMOGLOBIN 11.4 gm/dL (14.0-18.0); MCH 31.5 pg (26.0-34.0); MCV 95.5 fL (80.0-100.0); MPV 8.4 fl. (7.2-11.1); NUCLEATED RBCS 0 /100WBC; PLATELET COUNT* 126 thou/uL (150-400); RDW-CV 14.5 % (10.5-14.5); WBC 12.4 thou/uL (4.0-11.0)
[2021-02-17 14:52] LABS: CALCIUM 8.6 mg/dL (8.5-10.1); CREATININE 1.2 mg/dL (0.6-1.3)
[2021-02-17 14:57] LABS: ALBUMIN 3.5 g/dL (3.4-5.0); TOTAL BILIRUBIN 0.7 mg/dL (<0.1-1.0); TOTAL PROTEIN 6.5 g/dL (6.4-8.2)
[2021-02-17 15:12] LABS: URINE BILIRUBIN NEGATIVE (Negative); URINE BLOOD 2+ (Negative); URINE CLARITY CLEAR; URINE COLOR YELLOW; URINE GLUCOSE-RANDOM NEGATIVE (Negative); URINE KETONES 1+ (Negative); URINE LEUKOCYTES-REFLEX NEGATIVE (Negative); URINE NITRITE-REFLEX NEGATIVE (Negative); URINE PROTEIN NEGATIVE (Negative); URINE SPECIFIC GRAVITY 1.025 (1.005-1.030); URINE UROBILINOGEN 0.2 E.U./dl (0.2-1.0)
[2021-02-17 15:16] LABS: BACTERIA-REFLEX 1-9 Few /HPF (None Seen); CASTS None Seen /LPF (None Seen); CRYSTALS None Seen /LPF (None Seen); SQUAMOUS 0-3 Few /LPF (0-3); URINE RBC 3-10 Few /HPF (0-2); URINE WBC-REFLEX 0-5 Rare /HPF (0-5)
[2021-02-17 15:20] LABS: ABSOLUTE LYMPHOCYTES 0.7 thou/uL (0.8-5.3); ABSOLUTE NEUTROPHILS 10.7 thou/uL (1.6-8.1); PLATELET ESTIMATE DECREASED
[2021-02-17 18:49] VITALS: BP 135/65
[2021-02-17 19:37] VITALS: BP 131/53
[2021-02-18 03:40] LABS: ALBUMIN 3.1 g/dL (3.4-5.0); CALCIUM 8.3 mg/dL (8.5-10.1); MAGNESIUM 1.8 mg/dL (1.8-2.4); POTASSIUM 3.1 mmol/L (3.5-5.1); TOTAL BILIRUBIN 0.6 mg/dL (<0.1-1.0)
[2021-02-18 03:56] LABS: HEMATOCRIT 31.4 % (42.0-52.0); HEMOGLOBIN 10.5 gm/dL (14.0-18.0); MCH 31.2 pg (26.0-34.0); MCHC 33.5 g/dL (28.0-37.0); MPV 8.6 fl. (7.2-11.1); RBC 3.37 mil/uL (4.50-6.00); RDW-CV 14.3 % (10.5-14.5); WBC 11.3 thou/uL (4.0-11.0)
[2021-02-18 08:00] VITALS: BP 115/36
--- NOTE | 2021-02-18 11:48 | EKG ---
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 : 1960 Requested By: Aakash Durán Order Number: [id number] MD: Lalit Floyd Measurements Intervals [place] Rate: 84 P: 54 SD: 177 QRS: 42 QRSD: 108 T: 29 QT: 410 QTc: 485 Interpretive Statements Sinus rhythm Low voltage, precordial leads RSR' in V1 or V2, right VCD or RVH Borderline prolonged QT interval Compared to ECG 02/16/2021 01:21:21 Right ventricular hypertrophy now present RSR' in V1 or V2 now present Intraventricular conduction delay no longer present Electronically Signed On 02-18-2021 11:48:46 CDT by Lalit Floyd [email or web address] <ELECTRONICALLY SIGNED> By: Lalit Floyd MD, [facility] 02/18/21 1148 1419 1419 Lalit Floyd MD, [facility] /EPI
[2021-02-18 16:00] VITALS: BP 104/58
[2021-02-18 20:00] VITALS: BP 125/49
[2021-02-18 22:54] LABS: MAGNESIUM 1.9 mg/dL (1.8-2.4); POTASSIUM 3.9 mmol/L (3.5-5.1)
[2021-02-19 04:59] LABS: HEMATOCRIT 30.8 % (42.0-52.0); HEMOGLOBIN 10.6 gm/dL (14.0-18.0); MCHC 34.2 g/dL (28.0-37.0); MCV 93.6 fL (80.0-100.0); RBC 3.29 mil/uL (4.50-6.00); WBC 7.9 thou/uL (4.0-11.0)
[2021-02-19 05:12] LABS: CALCIUM 8.4 mg/dL (8.5-10.1); CREATININE 1.1 mg/dL (0.6-1.3); POTASSIUM 3.4 mmol/L (3.5-5.1)
[2021-02-19 07:30] VITALS: BP 102/49
[2021-02-19 10:10] VITALS: BP 102/49
[2021-02-19 16:43] VITALS: BP 150/60
[2021-02-19 21:40] VITALS: BP 131/58
[2021-02-20 07:35] VITALS: BP 132/48
[2021-02-20 15:54] VITALS: BP 94/43
[2021-02-20 20:00] VITALS: BP 115/53
[2021-02-21 08:38] VITALS: BP 117/52
[2021-02-21 10:59] LABS: CALCIUM 8.5 mg/dL (8.5-10.1); CREATININE 1.2 mg/dL (0.6-1.3); POTASSIUM 3.3 mmol/L (3.5-5.1)
[2021-02-21 15:54] VITALS: BP 88/43
[2021-02-21 19:45] VITALS: BP 148/62
[2021-02-22 07:50] VITALS: BP 109/54
[2021-02-22 08:58] VITALS: BP 109/54
--- NOTE | 2021-02-27 12:48 | CON ---
[address] [address] CONSULTATION Name: SYDNEE MAY Room: [address] [place] .R.#: [id number] Admission: 02/17/21 Attend Phys: Maritza Escalante MD Discharge: 02/22/21 Date of : 64 Report #: [id number] THIS REPORT FOR: cc: Suzie Marx Ahmad W. DO Khosla, Parveen K. MD ~ DOC #: [id number] Isidro Miller MD DATE OF CONSULTATION: 02/19/2021 HISTORY OF PRESENT ILLNESS: This 60-year-old male patient has a complicated history. He was admitted with recurrent falls. In the emergency room, he had a head CT as well as a cervical spine CT. 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 He had some records here for as far as back to 2002. One time he had been noticed to have some optic nerve swelling. He underwent a spinal tap which showed increased protein, but I do not think oligoclonal band or IgG index was checked. CSF electrophoresis was done that does not appear to be showing any abnormality. Record indicates that her opening pressure was to 70 mm of water and the closing pressure was only 7.5 and he did develop some headache. The old records indicate that this patient had a CT angiogram in 2002 but has not had anything since then, then he did have a CT angiogram again in 2019. That CT angiogram does not appear to be showing any gross abnormality. I assumed and looked at the venous sinuses at that time, but they did not mention anything in the report. REVIEW OF SYSTEMS: A 14-point review of system was carried out in this patient and it was positive for numerous things. He had ongoing weakness. He had some falls. He was in assisted living, now he is going to go for 24-hour care. He has fallen down because of this weakness. He does have a history of anxiety, in fact he sees a psychiatrist for that. He has a history of hyperlipidemia. He has a history of panic attack. He has a history of urinary retention as I understand. PAST MEDICAL HISTORY: Positive for cerebellar stroke. I am not sure when it happened. FAMILY HISTORY: Unremarkable. SOCIAL HISTORY: He says he does not drink any alcohol. PHYSICAL EXAMINATION: Indicates he is alert. He is slow. He talks slowly but could tell me what month it is, but his memory looks poor. He moves all 4 extremities. He does hrgrwd-[id number] in a somewhat unusual fashion. There is no meningeal sign in this patient. There is no carotid bruit. His vision and hearing look adequate. His vital signs indicate a blood pressure 150/60, [facility] [address] [place] [address] CONSULTATION Name: SYDNEE MAY Room: [address] ..#: [id number] Admission: 02/17/21 Attend Phys: Maritza Escalante MD Discharge: 02/22/21 Date of : 64 Report #: [id number] respirations are 16, pulse is 75, and temperature is 97.8. His cardiac examinations appear unremarkable. No respiratory difficulty was noticed in this patient. His extensive old records were reviewed. It looks like he had a sed rate one time and that was only 5. He is not complaining of any headache today. He does not appear to have any edema. His pulses are difficult to feel. He is an obese individual. He does not have any dysmorphic features of eyes, ears, or face. IMPRESSION AND PLAN: This is a complicated case. I think part of his ambulation difficulty is because of cerebellar strokes. I am not sure why he had cerebellar strokes. I do not believe he had an echocardiogram here. Those are old findings. On top of that, he has neuropathy. Because of it, when I do the sensory, it takes him a long time to tell me position sense, but then on the pinprick, he does not do very well on the feet. That is probably contributing to his problems. Having a mild pseudotumor cerebri in a man will be unusual, a cause has to be found for that. He needs workup of his spine to make sure that the spine is not contributing to his pathology. This is a chronic process which is going on for a long time, but looks like it is becoming worse. He will need an extensive workup. If he is going home, that can be done as an outpatient because he will need EMG for which we do not have any machine and he will need an MRI, which may not get approved. I will discuss with the hospitalist tomorrow, but I did discuss with him and I am not sure how much he understands because his memory does look impaired. Thank you very much for this referral and if you have any questions, please feel free to contact me. Isidro Miller MD PK/SHAQ <ELECTRONICALLY SIGNED> By: Isidro Miller MD 02/27/21 1248 [id number] Miller MD /nt
== END 2021-02-22 13:30 | DRG 689 ==
LOC: M.ERS 12:17 → M.ORTHSURG 15:22 → M.TBA-ER 15:22 → M.ORTHSURG 18:59
PROVIDERS: Family Medicine; Psychiatry & Neurology Neuromuscular Medicine; ADMIT Internal Medicine; ATTEND Internal Medicine
DX: N39.0 Urinary tract infection, site not specified (principal); G93.41 Metabolic encephalopathy; R65.11 Systemic inflammatory response syndrome (SIRS) of non-infectious origin with acute organ dysfunction; E87.6 Hypokalemia; Z20.822 Contact with and (suspected) exposure to COVID-19; I10 Essential (primary) hypertension; E11.9 Type 2 diabetes mellitus without complications; E78.5 Hyperlipidemia, unspecified; F32.9 Major depressive disorder, single episode, unspecified; F41.9 Anxiety disorder, unspecified; R53.81 Other malaise; R31.9 Hematuria, unspecified; D72.829 Elevated white blood cell count, unspecified; R33.9 Retention of urine, unspecified; L73.2 Hidradenitis suppurativa; F40.00 Agoraphobia, unspecified; Z88.6 Allergy status to analgesic agent; Z88.8 Allergy status to other drugs, medicaments and biological substances; Z86.73 Personal history of transient ischemic attack (TIA), and cerebral infarction without residual deficits; Z79.899 Other long term (current) drug therapy

== ENCOUNTER 2021-03-14 21:35 | Emergency (ER) | payer OTHER, MEDICAID ==
[~2021-03-14] VITALS: Ht 170.2 cm; Wt 114.8 kg
[2021-03-14 22:50] VITALS: BP 139/59
[2021-03-14 22:53] LABS: HEMATOCRIT 39.3 % (42.0-52.0); HEMOGLOBIN 13.3 gm/dL (14.0-18.0); MCH 31.7 pg (26.0-34.0); MCHC 33.7 g/dL (28.0-37.0); MPV 7.8 fl. (7.2-11.1); NUCLEATED RBCS 0 /100WBC; PLATELET COUNT* 181 thou/uL (150-400); RBC 4.18 mil/uL (4.50-6.00); WBC 12.5 thou/uL (4.0-11.0)
[2021-03-14 23:01] LABS: CREATININE 1.4 mg/dL (0.6-1.3); POTASSIUM 3.3 mmol/L (3.5-5.1)
[2021-03-14 23:04] LABS: APTT 23.9 Seconds (25.0-31.3); INR 1.2; PROTIME 12.7 Seconds (9.20-11.50)
[2021-03-14 23:05] LABS: ALBUMIN 3.3 g/dL (3.4-5.0); MAGNESIUM 1.7 mg/dL (1.8-2.4); PHOSPHORUS* 3.5 mg/dL (2.5-4.9); TOTAL BILIRUBIN 0.8 mg/dL (<0.1-1.0)
[2021-03-14 23:31] LABS: ABSOLUTE LYMPHOCYTES 1.1 thou/uL (0.8-5.3); ABSOLUTE MONOCYTES 0.4 thou/uL (0.0-1.2); MACROCYTES Occasional; PLATELET ESTIMATE ADEQUATE
--- NOTE | 2021-03-15 11:47 | EKG ---
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 : 1960 Requested By: Carmelita Jones Order Number: [id number] MD: Lalit Floyd Measurements Intervals [place] Rate: 160 P: [place]: QRS: 34 QRSD: 87 T: QT: 228 QTc: 372 Interpretive Statements Sinus rhythm Low voltage, precordial leads Borderline T abnormalities, inferior leads Compared to ECG 02/17/2021 14:19:10 No significant changes noted Electronically Signed On 03-15-2021 11:47:44 CDT by Lalit Floyd [email or web address] <ELECTRONICALLY SIGNED> By: Lalit Floyd MD, FACC 03/15/21 1147 2149 2149 Lalit Floyd MD, [facility] /EPI
== END 2021-03-14 23:01 | disposition short-term general hospital (02) ==
LOC: M.ERS 21:35
PROVIDERS: Personal Emergency Response Attendant
DX: S06.360A Traumatic hemorrhage of cerebrum, unspecified, without loss of consciousness, initial encounter (principal); S02.19XA Other fracture of base of skull, initial encounter for closed fracture; R56.9 Unspecified convulsions; I10 Essential (primary) hypertension; E11.9 Type 2 diabetes mellitus without complications; E78.5 Hyperlipidemia, unspecified; Z79.899 Other long term (current) drug therapy; Z88.5 Allergy status to narcotic agent; Z79.82 Long term (current) use of aspirin; W01.198A Fall on same level from slipping, tripping and stumbling with subsequent striking against other object, initial encounter; Y93.89 Activity, other specified; Y92.89 Other specified places as the place of occurrence of the external cause; Y99.9 Unspecified external cause status